=== PATIENT | female | born 2000 | race Hispanic/Latino ===

== ENCOUNTER 2022-08-31 00:47 | Emergency (ER) | payer MEDICAID ==
[~2022-08-31] VITALS: Ht 162.6 cm; Wt 122.5 kg
[2022-08-31 01:42] VITALS: BP 124/89
== END 2022-08-31 01:48 | disposition home or self-care (01) ==
LOC: EDH 00:47
DX: O99.513 Diseases of the respiratory system complicating pregnancy, third trimester (principal); J11.1 Influenza due to unidentified influenza virus with other respiratory manifestations; Z3A.32 32 weeks gestation of pregnancy

== ENCOUNTER 2022-10-23 20:36 | Emergency (ER) | payer MEDICAID ==
[~2022-10-23] VITALS: Ht 162.6 cm; Wt 85.7 kg
[~2022-10-23 20:36] MED LIST: DOCU-116 PO; IBUP-2077 PO
[2022-10-23 21:12] LABS: BASOPHILS % (AUTO) 0.7 % (0.0-5.0); EOSINOPHILS % (AUTO) 4.5 % (0.0-8.0); HEMATOCRIT 25.9 % (36-48); LYMPHOCYTES % (AUTO) 22.5 % (21.0-51.0); MEAN CORPUSCULAR HEMOGLOBIN 23.4 pg (27.0-33.0); MEAN CORPUSCULAR HGB CONC 31.3 g/dL (32.0-36.0); MEAN CORPUSCULAR VOLUME 74.9 fL (80-100); MONOCYTES % (AUTO) 8.6 % (3.0-13.0); NEUTROPHILS % (AUTO) 62.8 % (40.0-77.0); PLATELET COUNT (AUTO) 354 K/uL (130-400); RED BLOOD CELL COUNT(AUTO) 3.46 MIL/uL (4.00-5.50); RED CELL DISTRIBUTION WIDTH 18.6 % (11.0-15.5); WHITE BLOOD COUNT (AUTO) 8.9 K/uL (4.8-10.8)
[2022-10-23 21:23] LABS: CREATININE 0.9 mg/dL (0.5-1.5); POTASSIUM 3.5 mmol/L (3.5-5.1)
[2022-10-23 21:24] LABS: APPEARANCE,URINE CLEAR (CLEAR); BILIRUBIN,URINE NEGATIVE (NEGATIVE); COLOR,URINE LIGHT-YELLOW (YELLOW); GLUCOSE, URINE (UA) NEGATIVE (NEGATIVE); KETONES,URINE NEGATIVE (NEGATIVE); LEUKOCYTE ESTERASE ,URINE 500 Leu/uL (NEGATIVE); NITRATE,URINE NEGATIVE (NEGATIVE); OCCULT BLOOD,URINE LARGE (NEGATIVE); PROTEIN,URINE NEGATIVE (NEGATIVE); UROBILINOGEN,URINE 0.2 mg/dL (0.2-1.0)
[2022-10-23 21:28] LABS: ALBUMIN 2.4 g/dL (3.5-5.0); TOTAL PROTEIN, SERUM 6.9 g/dL (6.0-8.3)
[2022-10-23] MEDS ORDERED: 0.9%NACL 1000ML 1,000 ML IV SCH (21:30)
[2022-10-23] MEDS ORDERED: ACETAMINOPHEN 500 MG TABLET PO ONE (21:30)
[2022-10-23] MEDS ORDERED: KETOROLAC 30MG VIAL (30MG/ML) IVP ONE (21:30)
[2022-10-23] MEDS ORDERED: ONDANSETRON 4MG INJ IVP ONE (21:30)
[2022-10-23 21:36] LABS: BACTERIA,URINE RARE /HPF (None Seen); MUCUS,URINE RARE LPF (None Seen); SQUAMOUS EPITHELIAL CELL,UR RARE /HPF (0-2); WBC,URINE 26-50 /HPF (0-1)
[2022-10-23] MEDS ORDERED: ONDANSETRON 4MG INJ ONE (21:44)
[2022-10-23] MEDS ORDERED: KETOROLAC 30MG VIAL (30MG/ML) ONE (21:44)
[2022-10-23] MEDS ORDERED: ACETAMINOPHEN 500 MG TABLET ONE (21:45)
[2022-10-23] MEDS ORDERED: 0.9%NACL 1000ML 1,000 ML IV ONE (21:45)
[2022-10-23] MEDS ORDERED: CEFTRIAXONE 1G VIAL IVP ONE (22:00)
[2022-10-23] MEDS ORDERED: DICY20TA2 PO (22:46)
[2022-10-23] MEDS ORDERED: CEFU500T67 PO (22:46)
[2022-10-23] MEDS ORDERED: FAMO-136 PO (22:46)
[2022-10-23 22:54] VITALS: BP 124/79
== END 2022-10-23 23:05 | disposition home or self-care (01) ==
LOC: EDH 20:36
DX: N39.0 Urinary tract infection, site not specified (principal); K29.70 Gastritis, unspecified, without bleeding; D64.9 Anemia, unspecified; E66.9 Obesity, unspecified; Z68.32 Body mass index [BMI] 32.0-32.9, adult
CPT/HCPCS: 99284; 74176; 96374; 96375; 96361; 80053; 83690; 85025; 87088; 81001; 36415; J7030; J0696; J2405; J1885

== ENCOUNTER 2023-10-30 01:20 | Emergency (ER) | payer MEDICAID ==
[~2023-10-30] VITALS: Ht 162.6 cm; Wt 113.9 kg
[~2023-10-30 01:20] MED LIST changes: +CEFU500T67 PO; +DICY20TA2 PO; +FAMO-136 PO
[2023-10-30 01:49] VITALS: PULSE 121; RESP 22
[2023-10-30 01:52] LABS: HEMATOCRIT 36.1 % (36-48); MEAN CORPUSCULAR HEMOGLOBIN 23.6 pg (27.0-33.0); MEAN CORPUSCULAR HGB CONC 31.3 g/dL (32.0-36.0); MEAN CORPUSCULAR VOLUME 75.5 fL (79-99); PLATELET COUNT (AUTO) 370 K/uL (130-400); RED BLOOD CELL COUNT(AUTO) 4.78 MIL/uL (4.00-5.50); RED CELL DISTRIBUTION WIDTH 15.6 % (11.0-15.5); WHITE BLOOD COUNT (AUTO) 9.9 K/uL (4.8-10.8)
[2023-10-30 02:00] LABS: RAPID GROUP A STREP negative (NEGATIVE)
[2023-10-30] MEDS ORDERED: SOLU-MEDROL 125MG VIAL IVP ONE (02:00)
[2023-10-30] MEDS ORDERED: IPRATROPIUM/ALBUTEROL SULFATE 3 ML SOLUTION IH ONE (02:00)
[2023-10-30 02:03] LABS: CREATININE 0.9 mg/dL (0.5-1.5); POTASSIUM 3.4 mmol/L (3.5-5.1)
[2023-10-30 02:06] LABS: SARS-CoV-2, RNA, NAAT NEGATIVE SARS CoV-2 (NEGATIVE)
[2023-10-30 02:08] LABS: ALBUMIN 3.4 g/dL (3.5-5.0); BILIRUBIN,TOTAL 0.3 mg/dL (0.2-1.0); TOTAL PROTEIN, SERUM 7.8 g/dL (6.0-8.3)
[2023-10-30 02:10] LABS: INFLUENZA TYPE A Negative For Type A (NEGATIVE)
[2023-10-30 02:23] LABS: INFLUENZA TYPE B Positive For Type B (NEGATIVE)
[2023-10-30 02:24] VITALS: BP 111/64; PULSE 114; RESP 23; O2SAT 95
[2023-10-30 02:28] LABS: BASOPHILS # (AUTO) 0.09 K/uL (0.00-0.20); BASOPHILS % (AUTO) 0.9 % (0.0-5.0); EOSINOPHILS # (AUTO) 0.65 K/uL (0.00-0.70); EOSINOPHILS % (AUTO) 6.7 % (0.0-8.0); IMMATURE GRANULOCYTE ABSOLUTE 0.03 K/uL (0-1); LYMPHOCYTES # (AUTO) 2.5 K/uL (1.0-4.8); LYMPHOCYTES % (AUTO) 25.8 % (21.0-51.0); MONOCYTES # (AUTO) 0.5 K/uL (0.1-1.0); MONOCYTES % (AUTO) 5.4 % (3.0-13.0); NEUTROPHILS # (AUTO) 5.9 K/uL (1.8-7.7); NEUTROPHILS % (AUTO) 60.9 % (40.0-77.0)
[2023-10-30] MEDS ORDERED: ALBU90AE2 IH (02:53)
[2023-10-30] MEDS ORDERED: PRED20TA3 PO (02:53)
[2023-10-30] MEDS ORDERED: OSEL75 PO (02:53)
== END 2023-10-30 03:28 | disposition home or self-care (01) ==
LOC: EDH 01:20
DX: J45.901 Unspecified asthma with (acute) exacerbation (principal); J10.1 Influenza due to other identified influenza virus with other respiratory manifestations; Z20.822 Contact with and (suspected) exposure to COVID-19
CPT/HCPCS: 99284; 96374; 71045; 87635; 80053; 84703; 85025; 87880; 87804 ×2; 36415; 94640; C9803; J2930

== ENCOUNTER 2024-06-12 10:21 | Inpatient (IN) | payer MEDICAID, OTHER ==
[~2024-06-12] VITALS: Ht 162.6 cm; Wt 126.6 kg
[2024-06-12] VITALS (10 sets, daily range): BP systolic 108–130; BP diastolic 47–69; PULSE 93–138; RESP 16–24; O2SAT 91–96
[2024-06-12] MEDS: SOLU-MEDROL 125MG VIAL IVP ONE (10:38)
[2024-06-12] MEDS: ALBUTEROL 0.083% 2.5 MG/3 ML INH IH ONE ×2 (10:38→11:33)
[2024-06-12] MEDS: 0.9%NACL 1000ML 1,000 ML IV ONE (10:38)
[2024-06-12] MEDS: BUDESONIDE 0.5 MG/2 ML INH IH STA (10:39)
[2024-06-12 10:49] LABS: BASOPHILS # (AUTO) 0.09 K/uL (0.00-0.20); BASOPHILS % (AUTO) 0.7 % (0.0-5.0); EOSINOPHILS % (AUTO) 5.8 % (0.0-8.0); IMMATURE GRANULOCYTE ABSOLUTE 0.03 K/uL (0-1); LYMPHOCYTES # (AUTO) 1.9 K/uL (1.0-4.8); LYMPHOCYTES % (AUTO) 15.7 % (21.0-51.0); MEAN CORPUSCULAR HEMOGLOBIN 24.9 pg (27.0-33.0); MEAN CORPUSCULAR HGB CONC 32.4 g/dL (32.0-36.0); MEAN CORPUSCULAR VOLUME 76.8 fL (79-99); MONOCYTES # (AUTO) 0.7 K/uL (0.1-1.0); MONOCYTES % (AUTO) 5.8 % (3.0-13.0); NEUTROPHILS # (AUTO) 8.7 K/uL (1.8-7.7); NEUTROPHILS % (AUTO) 71.8 % (40.0-77.0); PLATELET COUNT (AUTO) 371 K/uL (130-400); RED BLOOD CELL COUNT(AUTO) 4.82 MIL/uL (4.00-5.50); RED CELL DISTRIBUTION WIDTH 16.5 % (11.0-15.5); WHITE BLOOD COUNT (AUTO) 12.1 K/uL (4.8-10.8)
[2024-06-12 11:02] LABS: CREATININE 0.9 mg/dL (0.5-1.0); POTASSIUM 3.8 mmol/L (3.5-5.1)
[2024-06-12] MEDS: MAGNESIUM 2GM PREMIX 50ML 50 ML IV SCH (11:11)
[2024-06-12] MEDS: AZITHROMYCIN 500MG+NS 250ML 250 ML IVPB STA (11:11)
[2024-06-12] MEDS: CEFTRIAXONE 1G VIAL IVPB ONE (12:37)
[2024-06-12] MEDS ORDERED: ONDANSETRON 4MG INJ IVP PRN (13:00)
[2024-06-12] MEDS ORDERED: ACETAMINOPHEN 325 MG TAB PO PRN (13:00)
[2024-06-12] MEDS: IPRATROPIUM/ALBUTEROL SULFATE 3 ML SOLUTION IH SCH (14:25)
[2024-06-12] MEDS ORDERED: IPRATROPIUM/ALBUTEROL SULFATE 3 ML SOLUTION IH SCH ×2 (16:00→18:00)
[2024-06-12] MEDS: BUDESONIDE 0.5 MG/2 ML INH IH SCH (18:22)
[2024-06-12] MEDS: SOLU-MEDROL 40MG VIAL IVP SCH (21:00)
[2024-06-13] VITALS (25 sets, daily range): BP systolic 100–144; BP diastolic 44–76; PULSE 60–110; RESP 10–34; O2SAT 92–98
[2024-06-13] MEDS: IPRATROPIUM/ALBUTEROL SULFATE 3 ML SOLUTION IH ONE ×3 (01:37→09:30)
[2024-06-13] MEDS: BUDESONIDE 0.5 MG/2 ML INH IH ONE (06:16)
[2024-06-13] MEDS: ENOXAPARIN SODIUM 30 MG/0.3 ML SQ SCH (10:42)
[2024-06-13 10:43] LABS: BASOPHILS # (AUTO) 0.02 K/uL (0.00-0.20); BASOPHILS % (AUTO) 0.2 % (0.0-5.0); EOSINOPHILS # (AUTO) 0.01 K/uL (0.00-0.70); EOSINOPHILS % (AUTO) 0.1 % (0.0-8.0); IMMATURE GRANULOCYTE ABSOLUTE 0.05 K/uL (0-1); LYMPHOCYTES # (AUTO) 1.9 K/uL (1.0-4.8); MEAN CORPUSCULAR HEMOGLOBIN 25.5 pg (27.0-33.0); MEAN CORPUSCULAR HGB CONC 31.7 g/dL (32.0-36.0); MEAN CORPUSCULAR VOLUME 80.3 fL (79-99); MONOCYTES # (AUTO) 0.9 K/uL (0.1-1.0); MONOCYTES % (AUTO) 8.1 % (3.0-13.0); NEUTROPHILS # (AUTO) 8.4 K/uL (1.8-7.7); NEUTROPHILS % (AUTO) 74.2 % (40.0-77.0); PLATELET COUNT (AUTO) 352 K/uL (130-400); RED BLOOD CELL COUNT(AUTO) 4.36 MIL/uL (4.00-5.50); RED CELL DISTRIBUTION WIDTH 16.8 % (11.0-15.5); WHITE BLOOD COUNT (AUTO) 11.3 K/uL (4.8-10.8)
[2024-06-13] MEDS: FAMOTIDINE 20MG TAB PO SCH (10:43)
[2024-06-13] MEDS: MONTELUKAST SODIUM 10 MG TAB PO SCH (10:43)
[2024-06-13 10:52] LABS: HEMOGLOBIN A1C 5.6 % (4.0-6.0)
[2024-06-13 10:53] LABS: BILIRUBIN,TOTAL 0.3 mg/dL (0.2-1.0); CREATININE 0.8 mg/dL (0.5-1.0); PHOSPHORUS 3.4 mg/dL (2.5-4.9); POTASSIUM 4.1 mmol/L (3.5-5.1); TOTAL PROTEIN, SERUM 7.1 g/dL (6.0-8.3)
[2024-06-13 11:09] LABS: SARS-CoV-2, RNA, NAAT NEGATIVE SARS CoV-2 (NEGATIVE)
[2024-06-13 11:13] LABS: INFLUENZA TYPE A Negative For Type A (NEGATIVE); INFLUENZA TYPE B Negative For Type B (NEGATIVE)
[2024-06-14] VITALS (17 sets, daily range): BP systolic 100–114; BP diastolic 49–73; PULSE 60–104; RESP 16–20; O2SAT 94–97
[2024-06-14 05:03] LABS: BASOPHILS # (AUTO) 0.01 K/uL (0.00-0.20); BASOPHILS % (AUTO) 0.1 % (0.0-5.0); HEMATOCRIT 34.9 % (36-48); IMMATURE GRANULOCYTE ABSOLUTE 0.06 K/uL (0-1); LYMPHOCYTES # (AUTO) 1.2 K/uL (1.0-4.8); LYMPHOCYTES % (AUTO) 9.9 % (21.0-51.0); MEAN CORPUSCULAR HEMOGLOBIN 24.9 pg (27.0-33.0); MEAN CORPUSCULAR HGB CONC 32.1 g/dL (32.0-36.0); MEAN CORPUSCULAR VOLUME 77.6 fL (79-99); MONOCYTES # (AUTO) 0.4 K/uL (0.1-1.0); MONOCYTES % (AUTO) 3.3 % (3.0-13.0); NEUTROPHILS # (AUTO) 10.4 K/uL (1.8-7.7); NEUTROPHILS % (AUTO) 86.2 % (40.0-77.0); PLATELET COUNT (AUTO) 370 K/uL (130-400); RED CELL DISTRIBUTION WIDTH 17.1 % (11.0-15.5); WHITE BLOOD COUNT (AUTO) 12.1 K/uL (4.8-10.8)
[2024-06-14 05:23] LABS: CREATININE 0.9 mg/dL (0.5-1.0); MAGNESIUM 1.9 mg/dL (1.80-2.40); POTASSIUM 4.4 mmol/L (3.5-5.1)
[2024-06-15] VITALS (15 sets, daily range): BP systolic 99–112; BP diastolic 54–64; PULSE 51–93; RESP 16–20; O2SAT 95–96
[2024-06-15 06:19] LABS: HEMATOCRIT 36.3 % (36-48); MEAN CORPUSCULAR HEMOGLOBIN 25.1 pg (27.0-33.0); MEAN CORPUSCULAR HGB CONC 31.4 g/dL (32.0-36.0); RED BLOOD CELL COUNT(AUTO) 4.54 MIL/uL (4.00-5.50); RED CELL DISTRIBUTION WIDTH 17.2 % (11.0-15.5); WHITE BLOOD COUNT (AUTO) 10.6 K/uL (4.8-10.8)
[2024-06-15 06:35] LABS: CREATININE 0.8 mg/dL (0.5-1.0); POTASSIUM 4.2 mmol/L (3.5-5.1)
[2024-06-16] VITALS (8 sets, daily range): BP systolic 100–113; BP diastolic 51–62; PULSE 57–79; RESP 16–20; O2SAT 95–96
[2024-06-16 06:17] LABS: HEMATOCRIT 36.3 % (36-48); MEAN CORPUSCULAR HEMOGLOBIN 24.6 pg (27.0-33.0); MEAN CORPUSCULAR HGB CONC 31.4 g/dL (32.0-36.0); MEAN CORPUSCULAR VOLUME 78.4 fL (79-99); RED BLOOD CELL COUNT(AUTO) 4.63 MIL/uL (4.00-5.50); RED CELL DISTRIBUTION WIDTH 17.2 % (11.0-15.5); WHITE BLOOD COUNT (AUTO) 11.1 K/uL (4.8-10.8)
[2024-06-16 06:27] LABS: CREATININE 0.8 mg/dL (0.5-1.0); POTASSIUM 4.1 mmol/L (3.5-5.1)
[2024-06-16] MEDS ORDERED: PHARMACY COMMUNICATION MISC SCH (11:30)
[2024-06-16] MEDS: ALBUTEROL INHALER 90MCG/INH IH PRN (13:51)
[2024-06-16] MEDS: PHARMACY COMMUNICATION MISC SCH (13:53)
== END 2024-06-16 15:05 | disposition home or self-care (01) | DRG 189 ==
LOC: EDH 10:21 → 2CH 11:31 → EDH 21:03 → 3BH 06-13 14:38
PROVIDERS: ADMIT Internal Medicine Infectious Disease; ATTEND Internal Medicine Infectious Disease
DX: J96.01 Acute respiratory failure with hypoxia (principal); J45.41 Moderate persistent asthma with (acute) exacerbation; Z68.42 Body mass index [BMI] 45.0-49.9, adult; Z20.822 Contact with and (suspected) exposure to COVID-19; E66.01 Morbid (severe) obesity due to excess calories; R73.9 Hyperglycemia, unspecified; Z91.199 Patient's noncompliance with other medical treatment and regimen due to unspecified reason; Z59.7 Insufficient social insurance and welfare support; Z59.86 Financial insecurity
CPT/HCPCS: 36415; 71045; 80048; 80053; 82948; 83036; 83605; 83735; 83880; 84100; 84443; 84703; 85025; 85027; 86140; 87040; 87426; 87635; 87804; 93005; 94640; 94644; 94664; 94760; G0378; J0456; J0696; J1650; J2919; J3475

== ENCOUNTER 2024-08-01 19:50 | Inpatient (IN) | payer SELFPAY ==
[~2024-08-01] VITALS: Ht 162.6 cm; Wt 125.2 kg
[2024-08-01] MEDS: IpraTROPium/alBUTERol SULFATE 3 ML SOLUTION IH PRN (20:07)
[2024-08-01] MEDS: ALBUTEROL 0.083% 2.5 MG/3 ML INH IH ONE (20:09)
[2024-08-01 20:11] VITALS: PULSE 106; RESP 20
[2024-08-01 20:13] LABS: BASOPHILS # (AUTO) 0.11 K/uL (0.00-0.20); BASOPHILS % (AUTO) 1.3 % (0.0-5.0); EOSINOPHILS # (AUTO) 0.74 K/uL (0.00-0.70); EOSINOPHILS % (AUTO) 8.7 % (0.0-8.0); HEMATOCRIT 35.9 % (36-48); IMMATURE GRANULOCYTE ABSOLUTE 0.02 K/uL (0-1); LYMPHOCYTES # (AUTO) 2.3 K/uL (1.0-4.8); LYMPHOCYTES % (AUTO) 26.9 % (21.0-51.0); MEAN CORPUSCULAR HGB CONC 32.3 g/dL (32.0-36.0); MEAN CORPUSCULAR VOLUME 80.3 fL (79-99); MONOCYTES # (AUTO) 0.5 K/uL (0.1-1.0); MONOCYTES % (AUTO) 6.3 % (3.0-13.0); NEUTROPHILS # (AUTO) 4.8 K/uL (1.8-7.7); NEUTROPHILS % (AUTO) 56.6 % (40.0-77.0); PLATELET COUNT (AUTO) 300 K/uL (130-400); RED BLOOD CELL COUNT(AUTO) 4.47 MIL/uL (4.00-5.50); RED CELL DISTRIBUTION WIDTH 15.8 % (11.0-15.5); WHITE BLOOD COUNT (AUTO) 8.5 K/uL (4.8-10.8)
[2024-08-01] MEDS: 0.9%NACL 1000ML 1,000 ML IV ONE (20:18)
[2024-08-01] MEDS: MAGNESIUM 2GM PREMIX 50ML 50 ML IV SCH (20:18)
[2024-08-01] MEDS: Solu-medROL 125MG VIAL IVP ONE (20:18)
[2024-08-01 20:31] LABS: CREATININE 0.9 mg/dL (0.5-1.0); POTASSIUM 4.1 mmol/L (3.5-5.1)
[2024-08-01 21:20] LABS: INFLUENZA TYPE A Negative For Type A (NEGATIVE); INFLUENZA TYPE B Negative For Type B (NEGATIVE)
[2024-08-01 21:22] LABS: COVID19 (SARS ANTIGEN RAPID) PRESUMPTIVE NEGATIVE (NEGATIVE)
[2024-08-01 22:20] VITALS: BP 123/75; PULSE 103; RESP 19; TEMP 98.7
[2024-08-01 22:51] VITALS: O2SAT 94
[2024-08-01 23:31] VITALS: PULSE 94; RESP 20
[2024-08-01] MEDS: IpraTROPium/alBUTERol SULFATE 3 ML SOLUTION IH SCH (23:31)
[2024-08-01 23:51] VITALS: BP 124/58; PULSE 94; RESP 20; TEMP 98.1
[2024-08-02] VITALS (11 sets, daily range): BP systolic 102–121; BP diastolic 52–74; PULSE 85–107; RESP 18–22; TEMP 97.8–98.2; O2SAT 91–96
[2024-08-02] MEDS: ONDANSETRON 4MG INJ IVP PRN (00:31)
[2024-08-02 04:43] LABS: MEAN CORPUSCULAR HEMOGLOBIN 25.8 pg (27.0-33.0); MEAN CORPUSCULAR HGB CONC 31.3 g/dL (32.0-36.0); MEAN CORPUSCULAR VOLUME 82.6 fL (79-99); RED BLOOD CELL COUNT(AUTO) 4.72 MIL/uL (4.00-5.50); RED CELL DISTRIBUTION WIDTH 15.9 % (11.0-15.5); WHITE BLOOD COUNT (AUTO) 7.1 K/uL (4.8-10.8)
[2024-08-02 04:53] LABS: CREATININE 1.2 mg/dL (0.5-1.0); MAGNESIUM 1.8 mg/dL (1.80-2.40); POTASSIUM 4.3 mmol/L (3.5-5.1)
[2024-08-02] MEDS: Solu-medROL 40MG VIAL IVP ONE (09:37)
[2024-08-02] MEDS ORDERED: CEFTRIAXONE 2GM VIAL IVPB SCH (10:00)
[2024-08-02] MEDS: IpraTROPium 0.5 MG/2.5 ML INH IH SCH (10:00)
[2024-08-02] MEDS ORDERED: Solu-medROL 40MG VIAL IVP SCH (10:00)
[2024-08-02] MEDS ORDERED: IpraTROPium/alBUTERol SULFATE 3 ML SOLUTION IH SCH (10:00)
[2024-08-02] MEDS ORDERED: AZITHROMYCIN 500MG+NS 250ML 250 ML IVPB SCH (11:00)
[2024-08-02] MEDS: SODIUM CHLORIDE 3% FOR INHALATION 4 ML/AMP VIAL.NEB IH ONE (11:05)
[2024-08-02] MEDS: AZITHROMYCIN 500MG+NS 250ML 250 ML IVPB SCH (11:22)
[2024-08-02] MEDS: CEFTRIAXONE 2GM VIAL IVPB SCH (11:45)
[2024-08-02] MEDS: INSULIN humuLIN R 100 UNIT/ML 3ML SQ SCH (12:00)
[2024-08-02] MEDS: BUDESONIDE 0.5 MG/2 ML INH IH SCH (18:36)
[2024-08-02] MEDS: acetaMINOPHEN 325 MG TAB PO PRN (18:41)
[2024-08-02] MEDS: Solu-medROL 40MG VIAL IVP SCH (18:41)
[2024-08-03] VITALS (17 sets, daily range): BP systolic 110–135; BP diastolic 61–84; PULSE 60–107; RESP 18–22; TEMP 97.8–98.6; O2SAT 91–96
[2024-08-03 05:03] LABS: BASOPHILS # (AUTO) 0.02 K/uL (0.00-0.20); BASOPHILS % (AUTO) 0.1 % (0.0-5.0); EOSINOPHILS # (AUTO) 0.02 K/uL (0.00-0.70); EOSINOPHILS % (AUTO) 0.1 % (0.0-8.0); IMMATURE GRANULOCYTE ABSOLUTE 0.08 K/uL (0-1); LYMPHOCYTES # (AUTO) 1.6 K/uL (1.0-4.8); LYMPHOCYTES % (AUTO) 10.5 % (21.0-51.0); MEAN CORPUSCULAR HEMOGLOBIN 25.6 pg (27.0-33.0); MEAN CORPUSCULAR HGB CONC 31.6 g/dL (32.0-36.0); MONOCYTES # (AUTO) 0.9 K/uL (0.1-1.0); NEUTROPHILS # (AUTO) 12.8 K/uL (1.8-7.7); NEUTROPHILS % (AUTO) 82.8 % (40.0-77.0); PLATELET COUNT (AUTO) 373 K/uL (130-400); RED BLOOD CELL COUNT(AUTO) 4.57 MIL/uL (4.00-5.50); RED CELL DISTRIBUTION WIDTH 15.9 % (11.0-15.5); WHITE BLOOD COUNT (AUTO) 15.4 K/uL (4.8-10.8)
[2024-08-03 05:18] LABS: POTASSIUM 4.1 mmol/L (3.5-5.1)
[2024-08-03] MEDS: PANTOPRAZOLE 40 MG TAB DR PO SCH (08:04)
[2024-08-03] MEDS: PREDNISONE 20 MG TABLET PO SCH (08:04)
[2024-08-03] MEDS ORDERED: IpraTROPium 0.5 MG/2.5 ML INH IH SCH (12:00)
[2024-08-03 12:26] LABS: ABG BASE EXCESS -3.3 mmol/L (-2.0-3.0); ABG HCO3 21.7 mmol/L (21.0-28.0); ABG OXYGEN SATURATION 94.8 % (94.0-98.0); ABG PCO2 39 mmHg (32-45); ABG PH 7.365 (7.350-7.450); DEVICE COMMENT LR GABRIEL; PO2, ARTERIAL BG 75.8 mmHg (83.0-108.0); VENT MODE, BG 3LNC (ROOM AIR)
[2024-08-03] MEDS: Solu-medROL 40MG VIAL IVP SCH (13:12)
[2024-08-03] MEDS: furoSEMIDE 20MG VIAL IV ONE (13:12)
[2024-08-03] MEDS: IpraTROPium 0.5 MG/2.5 ML INH IH SCH ×2 (14:21→18:18)
[2024-08-03] MEDS: diazePAM 5 MG TAB PO ONE (17:30)
[2024-08-03] MEDS: monteLUKAST sodIUM 10 MG TAB PO SCH (19:59)
[2024-08-03] MEDS ORDERED: IpraTROPium 0.5 MG/2.5 ML INH IH PRN (23:00)
[2024-08-04] VITALS (21 sets, daily range): BP systolic 108–126; BP diastolic 61–74; PULSE 46–117; RESP 17–20; TEMP 97.8–98.7; O2SAT 93–98
[2024-08-04 04:17] LABS: HEMATOCRIT 37.5 % (36-48); MEAN CORPUSCULAR HEMOGLOBIN 25.2 pg (27.0-33.0); MEAN CORPUSCULAR HGB CONC 31.7 g/dL (32.0-36.0); MEAN CORPUSCULAR VOLUME 79.4 fL (79-99); RED BLOOD CELL COUNT(AUTO) 4.72 MIL/uL (4.00-5.50); RED CELL DISTRIBUTION WIDTH 15.8 % (11.0-15.5)
[2024-08-04] MEDS: acetaMINOPHEN 325 MG TAB PO PRN (04:18)
[2024-08-04 04:31] LABS: MAGNESIUM 1.9 mg/dL (1.80-2.40); POTASSIUM 3.8 mmol/L (3.5-5.1)
[2024-08-04] MEDS: KCL 20 MEQ ERTAB PO PRN (04:59)
[2024-08-04] MEDS: traMADol HCL 50 MG TABLET PO PRN (04:59)
[2024-08-04] MEDS ORDERED: POTASSIUM CHLORIDE 10% ELIXIR 20 MEQ/15 ML UDCUP PO PRN (05:00)
[2024-08-04] MEDS ORDERED: POTASSIUM CHLORIDE 20MEQ/100ML 100 ML IV PRN (05:00)
[2024-08-04 10:37] LABS: ABG BASE EXCESS -1.2 mmol/L (-2.0-3.0); ABG OXYGEN SATURATION 97.5 % (94.0-98.0); ABG PCO2 37 mmHg (32-45); ABG PH 7.409 (7.350-7.450); DEVICE COMMENT RR, MARY,RN; PO2, ARTERIAL BG 97.2 mmHg (83.0-108.0); VENT MODE, BG NC 2L (ROOM AIR)
[2024-08-05] VITALS (15 sets, daily range): BP systolic 91–142; BP diastolic 51–77; PULSE 53–89; RESP 18–20; TEMP 98–98.9; O2SAT 86–96
[2024-08-05 04:26] LABS: HEMATOCRIT 41.6 % (36-48); MEAN CORPUSCULAR HEMOGLOBIN 25.6 pg (27.0-33.0); MEAN CORPUSCULAR HGB CONC 32.2 g/dL (32.0-36.0); MEAN CORPUSCULAR VOLUME 79.5 fL (79-99); RED BLOOD CELL COUNT(AUTO) 5.23 MIL/uL (4.00-5.50); RED CELL DISTRIBUTION WIDTH 15.4 % (11.0-15.5); WHITE BLOOD COUNT (AUTO) 11.8 K/uL (4.8-10.8)
[2024-08-05 04:56] LABS: MAGNESIUM 2.5 mg/dL (1.80-2.40); POTASSIUM 3.9 mmol/L (3.5-5.1)
[2024-08-05] MEDS: Solu-medROL 40MG VIAL IVP SCH (21:05)
[2024-08-06] VITALS (13 sets, daily range): BP systolic 105–128; BP diastolic 53–77; PULSE 45–92; RESP 18–21; TEMP 98–98.6; O2SAT 91–95
[2024-08-06] MEDS: Solu-medROL 40MG VIAL IVP SCH (23:49)
[2024-08-07] VITALS (16 sets, daily range): BP systolic 97–122; BP diastolic 52–81; PULSE 50–97; RESP 18–22; TEMP 97.7–98.8; O2SAT 92–96
[2024-08-07 03:51] LABS: HEMATOCRIT 38.3 % (36-48); MEAN CORPUSCULAR HEMOGLOBIN 25.3 pg (27.0-33.0); MEAN CORPUSCULAR HGB CONC 31.6 g/dL (32.0-36.0); RED BLOOD CELL COUNT(AUTO) 4.79 MIL/uL (4.00-5.50); RED CELL DISTRIBUTION WIDTH 15.2 % (11.0-15.5); WHITE BLOOD COUNT (AUTO) 10.5 K/uL (4.8-10.8)
[2024-08-07 04:06] LABS: MAGNESIUM 2.2 mg/dL (1.80-2.40); POTASSIUM 3.9 mmol/L (3.5-5.1)
[2024-08-08] VITALS (12 sets, daily range): BP systolic 99–119; BP diastolic 60–73; PULSE 47–108; RESP 18–22; TEMP 97.7–98.5; O2SAT 92–98
[2024-08-08] MEDS: PREDNISONE 20 MG TABLET PO SCH (08:36)
[2024-08-08] MEDS ORDERED: MONT-39 PO (14:54)
[2024-08-08] MEDS ORDERED: ALBU18HF7 IH (14:54)
[2024-08-08] MEDS ORDERED: METH4TAB3 PO (14:54)
[2024-08-08] MEDS ORDERED: DOXY100C61 PO (14:54)
== END 2024-08-08 16:10 | disposition home or self-care (01) | DRG 202 ==
LOC: EDH 19:50 → EDHIP 19:51 → 4BH 22:08 → 4AH 08-04 16:23
PROVIDERS: ADMIT Internal Medicine Infectious Disease; ATTEND Internal Medicine Infectious Disease
DX: J45.41 Moderate persistent asthma with (acute) exacerbation (principal); J96.01 Acute respiratory failure with hypoxia; Z68.42 Body mass index [BMI] 45.0-49.9, adult; Z20.822 Contact with and (suspected) exposure to COVID-19; E66.01 Morbid (severe) obesity due to excess calories; D72.829 Elevated white blood cell count, unspecified; R73.9 Hyperglycemia, unspecified; Z91.148 Patient's other noncompliance with medication regimen for other reason
CPT/HCPCS: 36415; 36600; 71045; 80048; 82803; 82948; 83735; 84145; 84703; 85025; 85027; 85378; 87071; 87205; 87426; 87804; 93005; 94640; 94664; 94760; 99291; G0378; J0456; J0696; J1815; J1940; J2405; J2919; J3475; J7030

== ENCOUNTER 2025-05-21 04:03 | Observation (INO) | payer SELFPAY ==
[~2025-05-21] VITALS: Ht 162.6 cm; Wt 118.0 kg
[~2025-05-21 04:03] MED LIST changes: +ALBU18HF7 IH; -CEFU500T67 PO; -DICY20TA2 PO; -DOCU-116 PO; +DOXY-466 PO; -FAMO-136 PO; -IBUP-2077 PO; +METH4TAB3 PO; +MONT-39 PO
[2025-05-21] MEDS: hydroMORPHone 2 MG VIAL (2MG/ML) IVP ONE (04:59)
[2025-05-21] MEDS: LACTATED RINGERS 1000ML IV STA (04:59)
[2025-05-21] MEDS ORDERED: ketOROlac 30MG VIAL (30MG/ML) IVP ONE (05:00)
[2025-05-21] MEDS: ondanSETRON 4MG TABLET PO ONE (05:00)
[2025-05-21 05:02] LABS: BASOPHILS # (AUTO) 0.08 K/uL (0.00-0.20); BASOPHILS % (AUTO) 0.8 % (0.0-5.0); EOSINOPHILS # (AUTO) 0.26 K/uL (0.00-0.70); EOSINOPHILS % (AUTO) 2.7 % (0.0-8.0); HEMATOCRIT 33.1 % (36-48); IMMATURE GRANULOCYTE ABSOLUTE 0.03 K/uL (0-1); LYMPHOCYTES # (AUTO) 2.5 K/uL (1.0-4.8); LYMPHOCYTES % (AUTO) 26.3 % (21.0-51.0); MEAN CORPUSCULAR HEMOGLOBIN 25.9 pg (27.0-33.0); MEAN CORPUSCULAR VOLUME 80.9 fL (79-99); MONOCYTES # (AUTO) 0.5 K/uL (0.1-1.0); MONOCYTES % (AUTO) 5.1 % (3.0-13.0); NEUTROPHILS # (AUTO) 6.2 K/uL (1.8-7.7); NEUTROPHILS % (AUTO) 64.8 % (40.0-77.0); PLATELET COUNT (AUTO) 274 K/uL (130-400); RED BLOOD CELL COUNT(AUTO) 4.09 MIL/uL (4.00-5.50); RED CELL DISTRIBUTION WIDTH 14.3 % (11.0-15.5); WHITE BLOOD COUNT (AUTO) 9.6 K/uL (4.8-10.8)
[2025-05-21 05:12] LABS: CREATININE 0.8 mg/dL (0.5-1.0); POTASSIUM 3.7 mmol/L (3.5-5.1)
[2025-05-21 05:16] LABS: ALBUMIN 3.1 g/dL (3.5-5.0); BILIRUBIN,TOTAL 0.3 mg/dL (0.2-1.0); TOTAL PROTEIN, SERUM 6.6 g/dL (6.0-8.3)
--- NOTE | 2025-05-21 05:52 | ERN ---
General Chief Complaint: Abdominal Pain Stated Complaint: UPPER ABD PAIN, HX GALLSTONES Time Seen by MD: 04:49 Source: patient History of Present Illness Initial Comments Patient here with bilateral upper quadrant abdominal pain. She states that it is gallbladder pain because she was seen in an emergency room where she was given that diagnosis. She does not know if it was a CT scan or an ultrasound and she does not know in which emergency room those exams were performed. She does have nausea and vomiting. Fevers chills. No chest pain no shortness of breath. Allergies: Coded Allergies: No Known Drug Allergies (Verified Allergy, Unknown, 05/21/25) Home Meds Active Scripts Albuterol Sulfate (Ventolin Hfa) 90 Mcg Hfa.aer.ad, 18 GM IH Q4H PRN for SHORTNESS OF BREATH/WHEEZING for 30 Days, #1 INHALER Prov:ALONDRA SWIFT 08/08/24 Methylprednisolone (Medrol) 4 Mg Tab.ds.pk, 4 MG PO DAILY for 6 Days, #1 KIT Prov:ALONDRA SWIFT 08/08/24 Montelukast Sodium (Montelukast Sodium) 10 Mg Tablet, 10 MG PO HS for 30 Days, #30 TAB Prov:ALONDRA SWIFT 08/08/24 Doxycycline Monohydrate (Doxycycline Monohydrate) 100 Mg Capsule, 100 MG PO BID for 5 Days, #10 CAP Prov:ALONDRA SWIFT 08/08/24 Past Medical History Past Medical History: No Pertinent History Past Surgical History: None Family History Family History: Negative Social History Social History: Negative, Lives with family Female( History) History: Not Applicable LMP: May 08, 2025 : 1 Para: 0 Aborts: 0 Constitutional: (+) chills, (+) diaphoresis, (+) fever, (+) malaise, (+) weakness, (+) other documentation EENTM: (-) eye pain, (-) blurred vision, (-) tearing, (-) double vision, (-) ear pain, (-) ear discharge, (-) nose pain, (-) nose congestion, (-) throat pain, (-) Throat swelling, (-) mouth pain, (-) tooth pain, (-) mouth swelling, (-) other documentation Respiratory: (-) cough, (-) orthopnea, (-) short of breath, (-) stridor, (-) wheezing, (-) other documentation Cardiovascular: (-) chest pain, (-) edema, (-) palpitations, (-) syncope, (-) dyspnea on exertion, (-) other documentation Gastrointestinal/Abdominal: (+) nausea, (+) vomiting Genitourinary: (-) vaginal discharge, (-) vaginal bleeding, (-) dysuria, (-) frequency, (-) hematuria, (-) pain, (-) other documentation Musculoskeletal: (+) Flank Pain Skin: (-) laceration, (-) contusion, (-) abrasion, (-) abscess, (-) rash, (-) change in color, (-) change in hair, (-) change in nails, (-) diaphoresis, (-) dryness, (-) other documentation Physical Exam General Appearance: (+) moderate distress General Appearance comment Patient on all fours in the bed stating she can not lie flat on her back because of the pain. She is constantly moving and unable to get comfortable. Orientation: (+) oriented x 3 Head/Face Trauma: No Eye: bilateral eye normal inspection, bilateral eye PERRL, bilateral eye EOMI Ear, Nose, Throat: (+) hearing grossly normal, (+) normal ENT inspection Neck: (+) normal inspection, (+) supple, (+) full range of motion Respiratory: (+) chest non-tender, (+) lungs clear Heart: (+) regular, (+) no gallop Vascular: (+) no edema, (+) normal peripheral pulse Gastrointestinal: (+) soft, (+) non-tender, (+) bowel sound present Gastrointestinal Comment No peritoneal signs negative Bray's sign. Results Laboratory and Microbiology Lab and Micro Result MDM MDM: Differential diagnosis: Rationale: Tests considered and ordered secondary to shared decision making include: labs, ECG and radiology Previous outside records reviewed: Old ER visits. Risk of complication and/or morbidity or mortality of patient management: None Medications-Per medication reconciliation Need for hospitalization: Patient does meet criteria for hospitalization. Need for emergency major/minor surgery: No There are no social concerns with this patient. Prescription drug management Prescriptions will include symptomatic care Patient's prior external medical records from other ER visits were reviewed by me as indicated. Prior testing and results from previous visits were reviewed. Prior tests were taken into account with medical decision making and resource utilization, independent historian/historians were used to obtain complete medical history. I independently interpreted the test that were performed, results were reviewed by me and considered findings on radiology if ordered. Medical management and examination interpretation discussions were had by me with other qualified healthcare professionals as indicated for the patient's care. 25-year-old female with choledocholithiasis and asthma exacerbation started on nebulized treatments and steroids, admitting for MRCP and GI consult with primary care. ED Course DX & DISP Disposition: Inpatient Departure Impression: Primary Impression: Acute asthma exacerbation Additional Impression: Choledocholithiasis Condition: Stable Referrals: SELF,REFERRAL (PCP) ADELE APODACA MD May 21, 2025 05:52 ERROL DAVIS MD May 21, 2025 10:14
[2025-05-21] MEDS ORDERED: IOHEXOL-350 75 ML VIAL IV ONE (07:09)
[2025-05-21 07:47] LABS: HCG,QUALITATIVE URINE NEGATIVE (NEGATIVE)
[2025-05-21 07:50] LABS: APPEARANCE,URINE CLOUDY (CLEAR); BILIRUBIN,URINE NEGATIVE (NEGATIVE); COLOR,URINE YELLOW (YELLOW); GLUCOSE, URINE (UA) NEGATIVE (NEGATIVE); KETONES,URINE NEGATIVE (NEGATIVE); LEUKOCYTE ESTERASE ,URINE 25 Leu/uL (NEGATIVE); MUCUS,URINE MANY LPF (None Seen); NITRATE,URINE NEGATIVE (NEGATIVE); OCCULT BLOOD,URINE NEGATIVE (NEGATIVE); PH,URINE 5.5 (5.0-8.0); PROTEIN,URINE 20 mg/dL (NEGATIVE); SQUAMOUS EPITHELIAL CELL,UR MOD /HPF (0-2)
--- NOTE | 2025-05-21 08:37 | HMCIMG ---
Exam Type: US ABDOMINAL RUQ\E\LTD Clinical Information: ruq pain Comparison: None Findings: The liver shows fatty infiltration and is enlarged, measuring over 16 cm and is otherwise unremarkable. Doppler evaluation shows patent portal and hepatic veins. The gallbladder shows cholelithiasis but no evidence of acute or chronic inflammation seen. Common bile duct dilatation is noted. The gallbladder wall measures 2 mm. The common bile duct measures 9 mm. The right kidney measures 10 x 6 cm- it shows no hydronephrosis or calculi, masses or other abnormalities. The pancreas is unremarkable. The aorta and inferior vena cava show no significant abnormalities. IMPRESSION: FATTY LIVER INFILTRATION AND HEPATOMEGALY. CHOLELITHIASIS. Dilated common bile duct.
--- NOTE | 2025-05-21 09:01 | HMCIMG ---
Exam Type: CT ABDOMEN/PELVIS W/WO CONTRAS Clinical Information: abd pain Comparison: None Contrast: 100 cc's Isovue 370 IV, no complications or adverse reactions CT Dose Index (CTDI): 31.60 mGy Dose Length Product (DLP): 1740.80 total mGy-cm Findings: No evidence of nephro or ureterolithiasis is found. No hydronephrosis or ureteral dilatation is seen. The lung bases are clear. The stomach is unremarkable. It shows no wall thickening. No gross ulceration is seen. It is not overly distended. There are no surrounding inflammatory changes. No wall lesions are identified to suggest cancer. The spleen is unremarkable. It is not enlarged. The pancreas shows normal anatomy. It is not fatty replaced. It shows no lesions. The pancreatic duct is not dilated. There is evidence of cholelithiasis. No evidence of acute or chronic inflammation is seen. The adrenal glands are unremarkable. There is no enlargement. No lesions are noted. The liver is unremarkable. It shows no focal masses. The appendix is unremarkable. It shows no evidence of inflammation. No appendicolith is seen. The small bowel is unremarkable. There is no evidence of dilatation to suggest obstruction. No evidence of adynamic ileus is seen. There is no small bowel wall thickening to suggest enteritis. The colon is unremarkable. The urinary bladder is unremarkable. There is no wall thickening to suggest tumor or inflammation. There are no intraluminal calculi. There are no diverticula. There is no evidence of chronic bladder outlet obstruction. There is no evidence of urinary bladder distention to suggest urinary retention. The other pelvic structures are unremarkable. The bony and vascular structures are unremarkable for the patient's age. IMPRESSION: Cholelithiasis. This study was performed using dose reduction techniques to include automated exposure control and/or adjustment of the mA and/or kV according to patient size.
--- NOTE | 2025-05-21 09:02 | NUR ---
PATIENT NOTED WITH WHEEZING IN ALL LUNG HATCH, NO C/O SOB, NO PAIN, ERMD MADE AWARE
[2025-05-21] MEDS ORDERED: morPHINE 2 MG SYG IVP PRN (09:30)
[2025-05-21] MEDS ORDERED: acetaMINOPHEN 325 MG TAB PO PRN (09:30)
[2025-05-21] MEDS ORDERED: ondanSETRON 4MG INJ IVP PRN (09:30)
[2025-05-21] MEDS: Solu-medROL 125MG VIAL IVP ONE (09:35)
[2025-05-21 09:56] VITALS: PULSE 90; RESP 18
[2025-05-21] MEDS: IpraTROPium/alBUTERol SULFATE 3 ML SOLUTION IH ONE ×2 (09:56)
[2025-05-21 10:55] VITALS: O2SAT 99
--- NOTE | 2025-05-21 10:56 | HMCIMG ---
Exam Type: MRI OF THE ABDOMEN WITHOUT CONTRAST and MR cholangiopancreatography Comparison Study: none History: CHOLELITHIASIS PROTOCOL: Examination is done with multiecho multiplanar sequences. ASSET with multiplanar 3-D reconstructions MR cholangiopancreatography sequences are also available for review. MRCP performed customary fashion. 2D axial FIESTA fat-saturated images of abdomen, coronal thick slab MRCP ASSET scan and coronal thin slab MRCP ASSET 3 mm images and maximum intensity projection postprocessing, MIP projected in the customary circumferential and head over heels fashion. FINDINGS: No evidence of nephro or ureterolithiasis is found. No hydronephrosis or ureteral dilatation is seen. The stomach is unremarkable. There is no evidence of gastric dilatation. No blastic thickening is noted to suggest inflammation or tumor. There is no perforation. There is no gastric outlet obstruction. There is no ulceration. The spleen is unremarkable. It is not enlarged. The pancreas shows normal anatomy. It is not fatty replaced. It shows no lesions. The pancreatic duct is not dilated. There is evidence of cholelithiasis. The gallbladder is hydropic. No evidence of acute or chronic inflammation is seen. The adrenal glands are unremarkable. There is no enlargement. No lesions are noted. The liver is unremarkable. It shows no focal masses. The visualized segments of large and small bowel appear unremarkable. The bony and vascular structures are unremarkable for the patient's age. MRCP shows mild dilatation of the colon bile duct at 7 mm. However, no distal obstructing lesion or calculus identified. IMPRESSION: Cholelithiasis and hydropic gallbladder. Minimal dilatation of the common bile duct without obstructing lesion or stone.
[2025-05-21] MEDS ORDERED: ALBU2.5V2 NEB (11:10)
[2025-05-21 11:11] VITALS: BP 142/87; PULSE 64; RESP 16; TEMP 98.7
--- NOTE | 2025-05-21 15:14 | CONS ---
GENERAL SURGERY CONSULTATION NOTE DATE OF CONSULTATION: May 21, 2025 TIME OF CONSULTATION: 15:13 CONSULTING SERVICE: Lei Landaverde MD REQUESTING PHYSICAIN: [ ] REASON FOR CONSULTATION: [ ] Abdominal pain HISTORY OF PRESENT ILLNESS: [ ] 25-year-old lady who presented with abdominal pain Pain started yesterday associated with nausea but no vomiting She also had diarrhea She has never had this kind of pain before PAST MEDICAL HISTORY: [ ] None PAST SURGICAL HISTORY: [ ] None FAMILY HISTORY: [ ] No family history of hypertension or diabetes SOCIAL HISTORY: [ ] No smoking No alcohol Current Medications Medications (Trade) Dose Ordered Sig/Felicia Route Start Time Stop Time Status Last Admin Dose Admin Dextrose/Sodium Chloride 1,000 ml @ 100 mls/hr Q10H IV 05/21/25 09:30 06/20/25 09:29 Enoxaparin Sodium (Lovenox) 30 mg DAILY SQ 05/22/25 09:00 06/21/25 08:59 Lactated Ringer's (Lactated Ringers 1000ml) 1,000 ml BOLUS STAT IV 05/21/25 04:50 05/21/25 04:53 DC 05/21/25 04:59 1,000 ML Allergies: Coded Allergies: No Known Drug Allergies (Verified Allergy, Unknown, 05/21/25) REVIEW OF SYSTEMS: [employer] ATTENDANT: [Denies headaches or blurring of vision.] RESP: [No cough, chest pain or SOB.] CVS: [No palpitaions.] GI: [abdominal pain with nausea and vomiting, no diarrhea or constipation.] DUSTIN: [No dysuria or hematuria.] Musculoskeletal: [No swelling or joint pain.] BACK: [No pain or swelling.] All other systems are reviewed and essentially negative pertinent positives in HPI. PHYSICAL EXAMINATION: GENERAL: [Patient is lying comfortably in bed, not in any obvious distress.] HEAD: [Normal with no signs of head trauma.] EYES: [Not pale not jaundiced afebrile to touch.] ENT: [ Normal.] NECK: [Supple,no tenderness,no lymphadenopathy,no masses,no thyromegaly ,no bruits, no JVD.] LUNGS: [Clear breath sounds bilaterally. No wheezes, rales, or rhonchi.] HEART: [Regular rate and rhythm. Normal S1 and S2, without murmurs, rub or gallop.] VASC: [No edema. Peripheral pulses normal and equal in all extremities.] ABD: [Bowel sounds present,soft, obese nontender : [Normal, no suprapubic tenderness.] LYMPH: [No lymphadenopathy noted.] EXT: [ Warm soft, non tender.] SKIN: [ No rashes or lesions.] NEURO: [ Awake Alert and oriented x3.] Vital Signs (last 8hr) Date Time Temp Pulse Resp B/P (MAP) Pulse Ox O2 Delivery O2 Flow Rate FiO2 05/21/25 11:11 98.8 64 16 142/87 100 Room Air 05/21/25 10:55 99 Room Air* 0 05/21/25 09:56 90 18 05/21/25 08:57 98.1 63 18 106/60 99 Room Air* 0 05/21/25 07:30 97.9 51 16 110/61 97 Room Air* 0 21 LABORATORY: [ ] Hematology Labs: Test 05/21/25 04:40 Range/Units White Blood Count 9.6 4.8-10.8 K/uL Red Blood Count 4.09 4.00-5.50 MIL/uL Hemoglobin 10.6 L 12.0-16.0 g/dL Hematocrit 33.1 L 36-48 % Mean Corpuscular Volume 80.9 79-99 fL Mean Corpuscular Hemoglobin 25.9 L 27.0-33.0 pg Mean Corpuscular Hemoglobin Concent 32.0 32.0-36.0 g/dL Red Cell Distribution Width 14.3 11.0-15.5 % Platelet Count 274 130-400 K/uL Mean Platelet Volume 12.3 H 7.5-10.5 fL Immature Granulocyte % (Auto) 0.3 0-1 % Neutrophils (%) (Auto) 64.8 40.0-77.0 % Lymphocytes (%) (Auto) 26.3 21.0-51.0 % Monocytes (%) (Auto) 5.1 3.0-13.0 % Eosinophils (%) (Auto) 2.7 0.0-8.0 % Basophils (%) (Auto) 0.8 0.0-5.0 % Neutrophils # (Auto) 6.2 1.8-7.7 K/uL Lymphocytes # (Auto) 2.5 1.0-4.8 K/uL Monocytes # (Auto) 0.5 0.1-1.0 K/uL Eosinophils # (Auto) 0.26 0.00-0.70 K/uL Basophils # (Auto) 0.08 0.00-0.20 K/uL Absolute Immature Granulocyte (auto 0.03 0-1 K/uL Nucleated Red Blood Cells 0.0 0.0-0.19 % Chemistry Labs: Test 05/21/25 04:40 Range/Units Sodium Level 141 136-145 mmol/L Potassium Level 3.7 3.5-5.1 mmol/L Chloride Level 106 101-111 mmol/L Carbon Dioxide Level 26 21-32 mmol/L Blood Urea Nitrogen 13 7-18 mg/dL Creatinine 0.8 0.5-1.0 mg/dL Glomerular Filtration Rate Calc 105 >90 mL/min Random Glucose 105 70-105 mg/dL Total Calcium 8.7 8.5-10.1 mg/dL Total Bilirubin 0.3 0.2-1.0 mg/dL Aspartate Amino Transf (AST/SGOT) 38 H 10-37 U/L Alanine Aminotransferase (ALT/SGPT) 31 12-78 U/L Alkaline Phosphatase 57 50-136 U/L Total Protein 6.6 6.0-8.3 g/dL Albumin 3.1 L 3.5-5.0 g/dL DIAGNOSTICS / RADIOLOGY: [Copy/Paste Echos/Imaging Report here] ASSESSMENT: [] Abdominal pain Biliary colic Cholelithiasis PLAN: [Trial of diet Okay to DC home to follow up with me in the office in two weeks Outpatient cholecystectomy LEI LANDAVERDE MD May 21, 2025 15:14
[2025-05-21 16:36] VITALS: BP 108/53; PULSE 57; RESP 18; TEMP 98.4
[2025-05-21 20:00] VITALS: BP 123/63; PULSE 53; RESP 20; TEMP 98.1
[2025-05-21 20:08] VITALS: O2SAT 94
[2025-05-21] MEDS: DEXTROSE 5 % AND 0.9 % NACL 1,000 ML IV SCH (20:08)
[2025-05-22] VITALS: BP 114/50; PULSE 57; RESP 20; TEMP 98.5
[2025-05-22 04:00] VITALS: BP 115/44; PULSE 67; RESP 20; TEMP 98.3
[2025-05-22 04:35] LABS: HEMATOCRIT 31.4 % (36-48); MEAN CORPUSCULAR HEMOGLOBIN 26.5 pg (27.0-33.0); MEAN CORPUSCULAR HGB CONC 32.8 g/dL (32.0-36.0); MEAN CORPUSCULAR VOLUME 80.7 fL (79-99); RED BLOOD CELL COUNT(AUTO) 3.89 MIL/uL (4.00-5.50); RED CELL DISTRIBUTION WIDTH 14.4 % (11.0-15.5); WHITE BLOOD COUNT (AUTO) 7.2 K/uL (4.8-10.8)
[2025-05-22 04:47] LABS: CREATININE 0.6 mg/dL (0.5-1.0); MAGNESIUM 1.8 mg/dL (1.80-2.40); POTASSIUM 3.5 mmol/L (3.5-5.1)
[2025-05-22 07:38] VITALS: BP 111/66; PULSE 80; RESP 16; TEMP 98
--- NOTE | 2025-05-22 07:40 | HP ---
DATE OF SERVICE: 05/21/2025 HISTORY AND PHYSICAL PRESENTING COMPLAINT: Abdominal pain. HISTORY OF PRESENT ILLNESS: A 25-year-old female with morbid obesity and asthma, presented to the hospital with abdominal pain. Pain localized to the right upper quadrant. No nausea, vomiting. Denies fever or chills. CT of the abdomen was done, which shows cholelithiasis. MRCP has been done, which shows cholelithiasis with hydrops gallbladder. CBD is slightly dilated with no evidence of obstruction. PAST MEDICAL HISTORY: * Obesity. * Bronchial asthma. PAST SURGICAL HISTORY: None. ALLERGIES: No known drug allergies. CURRENT MEDICATIONS: None. SOCIAL HISTORY: Denies alcohol, tobacco, or illicit drug use. FAMILY HISTORY: Noncontributory. REVIEW OF SYSTEMS: Greater than 10 systems were reviewed, negative except as documented above. PHYSICAL EXAMINATION: GENERAL: Young female, awake. VITAL SIGNS: Temperature 98.1, pulse 63, respiratory rate 18, BP 108/60. EYES: No icterus. Pupils are equal and reactive. HENT: No oral thrush seen. Moist oral mucosa. NECK: Supple. No JVD or thyromegaly. LUNGS: Good air entry. No rales. No rhonchi. CARDIOVASCULAR: S1, S2 regular. No murmur heard. ABDOMEN: Obese, soft. Bowel sound is present. Tenderness to the right upper quadrant. CENTRAL NERVOUS SYSTEM: Awake, alert, oriented x 3. No focal deficits. SKIN: No rashes. No itchiness. LYMPHATIC: No peripheral lymphadenopathy. MUSCULOSKELETAL: No joint swelling, erythema or tenderness. LABORATORY DATA: Sodium 141, potassium 3.7, BUN 13, creatinine 0.8. WBC 9.7, hemoglobin 10.6, platelet count 274. Urinalysis, wbc's 5. RADIOLOGY: MRCP shows cholelithiasis and hydrops gallbladder. ASSESSMENT: A 25-year-old female presented with abdominal pain. CURRENT PROBLEMS: Include: * Cholecystitis. * Abdominal pain. * Morbid obesity. * Anemia. PLAN: * Presented to medical floor. * The patient will be placed on clear liquid diet. * General Surgery evaluation. * Morphine as needed for pain. * Tylenol as needed for pain or fever. * Zofran as needed for nausea, vomiting. * The patient will be started on Zosyn. TID: [id number] RECEIPT: [id number] MTDD
[2025-05-22] MEDS ORDERED: PoTASSium chloRIDE 20MEQ ER 20 MEQ ERTAB PO PRN (08:30)
[2025-05-22] MEDS ORDERED: PoTASSium chloRIDE 20MEQ/100ML 100 ML IV PRN (08:30)
[2025-05-22] MEDS ORDERED: PoTASSium chl 10% ELIXIR 20MEQ 20 MEQ/15 ML UDCUP PO PRN (08:30)
[2025-05-22 08:51] VITALS: O2SAT 96
[2025-05-22] MEDS: ENOXAPARIN SODIUM 30 MG/0.3 ML SQ SCH (08:51)
[2025-05-22] MEDS: MAGNESIUM 2GM PREMIX 50ML 50 ML IV PRN (10:22)
[2025-05-22 11:20] VITALS: BP 108/53; PULSE 66; RESP 16; TEMP 97.7
--- NOTE | 2025-05-22 11:28 | NUR ---
DCP: HOME Pt currently lives with her mom Emma Herr [phone]. Pt does receive $300 a month in [employer]. Pt does not have DME, home health, or provider services. Pt is able to complete ADLs independently. Pt does not have PCP and stated that she was already familiar with community resources. At [place] pt will want to go home and family can assist with transportation. Addendum: 05/22/25 at 1132 by ALONDRA DAIGLE SS Amended: Links added.
--- NOTE | 2025-05-22 13:09 | NUR ---
VERBALLY. ORDER TO DISCHARGE. WROTE PRESCRIPTIONS. TO FOLLOW UP WITH CAROLYN GARCIA IN 2 WEEKS.
--- NOTE | 2025-05-22 14:10 | NUR ---
DISCHARGE DC'D IV X2. NO COMPLICATIONS. AWARE TO MAKE FOLLOW UP APPOINTMENT WITH DR. BECK WITHIN 2 WEEKS. PHONE NUMBER PROVIDE. ANSWERED ALL QUESTIONS AT THIS TIME.
--- NOTE | 2025-05-22 14:31 | DS ---
Discharge Summary Hospital Course This is a 25-year-old female patient with with a history of morbid obesity and asthma who presented to the hospital with abdominal pain, to the right upper quadrant. No nausea or vomiting reported. Denies fever or chills. CT of the abdomen was done, which showed cholelithiasis. MRCP has been done, which shows cholelithiasis with hydropic gallbladder. CBD is mildly dilated without evidence of obstruction. General surgery was consulted and plans to do outpatient cholecystectomy if possible. Patient denying pain this morning and tolerating regular diet well. We will discharged patient to home today and she is to follow up with Dr. Moyer in 2 weeks. FINAL DISCHARGE DIAGNOSIS. Cholecystitis. Abdominal pain, resolved. Morbid obesity. Anemia. Asthma. PLAN: Discharge patient to home today. Referred to new prescriptions for Augmentin 875 x 7 days. Continue same home medications. Follow up with Dr. Moyer in 2 weeks. This case was reviewed and discussed with my supervising physician and the above assessment and plan was formulated and agreed upon. ATTESTATION BY PHYSICIAN I have seen and examined the patient. I reviewed the documentation, medical decision making, and treatment plan as noted by the mid-level provider above. I agree with the findings and plan of care. DOMINIC CHAUHAN MD, MIRTA L [employer] OPERATOR May 22, 2025 14:31
== END 2025-05-22 14:56 | disposition home or self-care (01) ==
LOC: EDH 04:03 → EDBD 04:03 → INTOOBSV 04:04 → EDHIP 04:04 → 3AH 10:55
PROVIDERS: ADMIT Internal Medicine Infectious Disease; ATTEND Internal Medicine Infectious Disease
DX: K80.60 Calculus of gallbladder and bile duct with cholecystitis, unspecified, without obstruction (principal); J45.901 Unspecified asthma with (acute) exacerbation; D64.9 Anemia, unspecified; E66.01 Morbid (severe) obesity due to excess calories; J45.909 Unspecified asthma, uncomplicated; Z68.41 Body mass index [BMI] 40.0-44.9, adult; Z98.890 Other specified postprocedural states; Z79.899 Other long term (current) drug therapy
CPT/HCPCS: 99285; 74178; 74181; 96361 ×5; 76705; 96375; 80053; 85025; 81001; 81025; 36415 ×2; 94640; 96365; 96366; 83735; 80048; 85027; 96372; Q0162; J2919; J7120; Q9967; J1171; G0378; J3475; J1650

== ENCOUNTER 2025-07-01 11:39 | Inpatient (IN) | payer SELFPAY ==
[~2025-07-01] VITALS: Ht 162.6 cm; Wt 90.7 kg
[~2025-07-01 11:39] MED LIST changes: -ALBU18HF7 IH; +ALBU2.5V2 NEB; -DOXY-466 PO; -METH4TAB3 PO; -MONT-39 PO
--- NOTE | 2025-07-01 11:45 | ERN ---
ED Note History of Present Illness Stated Complaint: ASTHMA EXACERBATION Chief Complaint: Adult-Asthma Time Seen by MD: 11:41 Dictation: PATIENT IS A 25-YEAR-OLD FEMALE COMING IN VIA EMS WITH A AN ACUTE ASTHMA FLARE ONSET THIS MORNING. NO FEVER NO CHILLS NO NAUSEA VOMITING. SHE HAS HAD A COUGH THAT IS NONPRODUCTIVE. EMS ARRIVED AND ADMINISTERED ALBUTEROL 2.5 AND TERBUTALINE STATES SHE FEELS BETTER. SHE HAS NO PRIMARY CARE DOCTOR STATES SHE RELIES ON EMERGENCY ROOMS FOR HER MEDICAL CARE. NO ACUTE DISTRESS AT THIS TIME. Allergies: Coded Allergies: No Known Drug Allergies (Verified Allergy, Unknown, 05/21/25) Home Meds Reported Medications Albuterol Sulfate (Albuterol Sulfate) 2.5 Mg/3 Ml (0.083 %) Vial.neb, 1 VIAL NEB Q4HPRN PRN for wheezing 05/21/25 Past Medical History Past Medical History: No Pertinent History Surgical History: None Family History: Negative Social History: Negative, Lives with family History: Not Applicable : 1 Para: 0 Aborts: 0 RN Note Reviewed/Agreed w/PFSH: Yes Review of System Dictation CONSTITUTIONAL: NEGATIVE EXCEPT FOR HPI HEAD/FACE: NEGATIVE EXCEPT FOR HPI EENT: NEGATIVE EXCEPT FOR HPI RESPIRATORY: NEGATIVE EXCEPT FOR HPI SOB/WHEEZING GASTROINTESTINAL/ABDOMINAL: NEGATIVE EXCEPT FOR HPI GENITOURINARY: NEGATIVE EXCEPT FOR HPI MUSCULOSKELETAL: NEGATIVE EXCEPT FOR HPI INTEGUMENTARY: NEGATIVE EXCEPT FOR HPI NEUROLOGICAL/PSYCH: NEGATIVE EXCEPT FOR HPI HEMATOLOGIC/LYMPHATIC: NEGATIVE EXCEPT FOR HPI ALL SYSTEMS NEGATIVE, EXCEPT NOTED ABOVE. 13 POINT REVIEW OF SYSTEMS ASSESSED AND ALL NEGATIVE EXCEPT FOR ABOVE. Initial Vital Sign VS Vital Signs Date Time Temp Pulse Resp B/P (MAP) Pulse Ox O2 Delivery O2 Flow Rate FiO2 07/01/25 11:41 98.8 132 25 129/56 94 Room Air 0 07/01/25 12:14 32 Physical Exam Dictation VITAL SIGNS REVIEWED GENERAL APPEARANCE: ALERT, ORIENTED X 3, MILD ACUTE DISTRESS, WELL DEVELOPED, NOURISHED. HEAD AND FACE: NON-TRAUMATIC. EYES: PERRL, PINK CONJUNCTIVAS, EYELID NO TRAUMA, ANTERIOR CHAMBER WITH ARCUS SENILIS. EARS: PINNAS INTACT AND NO SIGNS OF TRAUMA OR ERYTHEMA EAR CANALS CLEAR AND NO DISCHARGE TM NO ERYTHEMA NOSE: NO DISCHARGE, NO BLEEDING. OROPHARYNX: MOUTH NORMAL, TONGUE PINK, PHARYNX CLEAR,NO ERYTHEMA, TONSILS NO EXUDATES, NO ABSCESSES NOTED, MUCOUS MEMBRANE MOIST NECK: SUPPLE, NON-TENDER, NO THYROMEGALY, NO MASSES, NO JVD, NO BRUITS BREAST:DEFERRED CHEST:NO TENDERNESS, NO CREPITUS, NO PARADOXICAL MOVEMENT, NO RETRACTIONS LUNGS:CLEAR, WELL-VENTILATED, SYMMETRIC, NO RALES, MILD EXPIRATORY WHEEZING BILATERAL LOWER LOBES. NO TACHYPNEA NO RETRACTIONS HEART: REGULAR RATE, REGULAR RHYTHM, NO MURMUR, NO GALLOPS VASCULAR: NO PERIPHERAL EDEMA, ABDOMEN: SOFT, POSITIVE BOWEL SOUNDS, NONDISTENDED, NO GUARDING, NONTENDER, NO REBOUND, NO MASSES NO HEPATOMEGALY, NO SPLENOMEGALY, NO ROGERS'S SIGN, NO HERNIAS. RECTAL: DEFERRED GENITAL: DEFERRED NEUROLOGICAL: NORMAL SPEECH, MOTOR FUNCTION INTACT, SENSORY FUNCTION INTACT MUSCULOSKELETAL: NECK NONTENDER, FULL RANGE OF MOTION, BACK NONTENDER, FULL RANGE OF MOTION, EXTREMITIES: NONTENDER, FULL RANGE OF MOTION SKIN: COLOR PINK, DRY, NO TURGOR, NO RASH, NO LACERATIONS, NO ABRASIONS, NO CONTUSIONS. LYMPHATIC: DEFERRED Results (Laboratory/Radiology) Laboratory/Radiology Laboratory Tests Test 07/01/25 13:18 07/01/25 13:38 White Blood Count 10.8 K/uL (4.8-10.8) Red Blood Count 4.59 MIL/uL (4.00-5.50) Hemoglobin 11.8 g/dL (12.0-16.0) L Hematocrit 36.9 % (36-48) Mean Corpuscular Volume 80.4 fL (79-99) Mean Corpuscular Hemoglobin 25.7 pg (27.0-33.0) L Mean Corpuscular Hemoglobin Concent 32.0 g/dL (32.0-36.0) Red Cell Distribution Width 14.6 % (11.0-15.5) Platelet Count 337 K/uL (130-400) Mean Platelet Volume 11.1 fL (7.5-10.5) H Immature Granulocyte % (Auto) 0.5 % (0-1) Neutrophils (%) (Auto) 83.0 % (40.0-77.0) H Lymphocytes (%) (Auto) 11.2 % (21.0-51.0) L Monocytes (%) (Auto) 2.6 % (3.0-13.0) L Eosinophils (%) (Auto) 2.0 % (0.0-8.0) Basophils (%) (Auto) 0.7 % (0.0-5.0) Neutrophils # (Auto) 8.9 K/uL (1.8-7.7) H Lymphocytes # (Auto) 1.2 K/uL (1.0-4.8) Monocytes # (Auto) 0.3 K/uL (0.1-1.0) Eosinophils # (Auto) 0.21 K/uL (0.00-0.70) Basophils # (Auto) 0.07 K/uL (0.00-0.20) Absolute Immature Granulocyte (auto 0.05 K/uL (0-1) Nucleated Red Blood Cells 0.0 % (0.0-0.19) Sodium Level 139 mmol/L (136-145) Potassium Level 3.6 mmol/L (3.5-5.1) Chloride Level 105 mmol/L (101-111) Carbon Dioxide Level 25 mmol/L (21-32) Blood Urea Nitrogen 10 mg/dL (7-18) Creatinine 0.7 mg/dL (0.5-1.0) Glomerular Filtration Rate Calc 124 mL/min (>90) Random Glucose 105 mg/dL (70-105) Lactic Acid Level 1.3 mmol/L (0.8-2.5) Total Calcium 8.9 mg/dL (8.5-10.1) Serum Test, Qualitative NEGATIVE (NEGATIVE) Blood Gas Specimen Type Arterial Arterial Blood pH 7.371 (7.350-7.450) Arterial Blood Partial Pressure CO2 38 mmHg (32-45) Arterial Blood Partial Pressure O2 76.3 mmHg (83.0-108.0) L Arterial Blood HCO3 21.7 mmol/L (21.0-28.0) Arterial Blood Oxygen Saturation 95.0 % (94.0-98.0) Arterial Blood Base Excess -3.1 mmol/L (-2.0-3.0) L Blood Gas Temperature 37.0 CELSIUS (35.5-37.0) Blood Gas Flow-by 3.00 L/min (0.00-15.00) Blood Gas Vent Mode NC (ROOM AIR) FiO2 32.0 % Blood Gas Specimen Comment DAWSON SANTOS-RAH ORDERING PHYSICIAN: RHEINER,DAWSON P BAND SPLICER PROCEDURE: CXR1VW - CHEST 1VW EXAM: CR Chest, 1 View. CLINICAL HISTORY: SOB/WHEEZING COMPARISON: None provided. FINDINGS: LUNGS: There is no mass, infiltrate, or acute pulmonary abnormality. PLEURAL SPACES: No pleural effusion or pneumothorax. MEDIASTINUM: Cardiac size and mediastinal contours within normal limits. BONES: No aggressive appearing osseous lesion seen. IMPRESSION: No acute cardiopulmonary pathology is evident. /[place] Labs Reviewed?: Yes ED Course ED Course Orders Procedure Category Date Status Time Methylprednisolone PHA 07/01/25 Complete Succ 125mg (Solu-Medr 12:00 Albuterol 0.083% PHA 07/01/25 Complete 2.5mg/3ml (Proventil 12:00 Budesonide 0.5 Mg/2 PHA 07/01/25 Complete Ml Inh (Pulmicort 0. 11:42 Arterial Blood Gas RT 07/01/25 Transmitted 12:57 Blood Cult MANUEL 07/01/25 In Process 12:57 Lactic Acid LAB 07/01/25 Complete 12:57 Cbc With Differential LAB 07/01/25 Complete 12:57 Chest 1vw RAD 07/01/25 Resulted 12:57 Basic Metabolic Panel LAB 07/01/25 Complete 12:57 Testing, LAB 07/01/25 Complete Serum Hcg 12:57 Ceftriaxone 2gm Vial PHA 07/01/25 Complete (Rocephin 2gm Inj) 13:00 Arterial Blood Gas LAB 07/01/25 Complete 13:38 Albuterol 0.083% PHA 07/01/25 Complete 2.5mg/3ml (Proventil 13:40 Current Medications Medications (Trade) Dose Ordered Sig/Felicia Route PRN Reason Start Time Stop Time Status Last Admin Dose Admin Albuterol Sulfate (Proventil 0.083% 2.5mg/3ml) 2.5MG ONCE ONCE IH 07/01/25 12:00 07/01/25 12:01 DC 07/01/25 12:16 Albuterol Sulfate (Proventil 0.083% 2.5mg/3ml) 10 mg ONCE STAT IH 07/01/25 13:40 07/01/25 13:42 DC 07/01/25 13:53 Budesonide (Pulmicort 0.5 Mg/2ml) 1 mg ONCE STAT IH 07/01/25 11:42 07/01/25 11:48 DC 07/01/25 12:15 Ceftriaxone Sodium (Rocephin 2gm Inj) 2 gm ONCE ONCE IVPB 07/01/25 13:00 07/01/25 13:01 DC Methylprednisolone Sodium Succinate (Solu-medROL 125MG) 125 mg ONCE ONCE IVP 07/01/25 12:00 07/01/25 12:01 DC 07/01/25 11:59 Vital Signs Date Time Temp Pulse Resp B/P (MAP) Pulse Ox O2 Delivery O2 Flow Rate FiO2 07/01/25 13:54 99 20 8.0 07/01/25 12:18 125 24 07/01/25 12:14 98.2 117 18 119/49 92 Nasal Cannula* 3 32 07/01/25 11:41 98.8 132 25 129/56 94 Room Air 0 1300/PATIENT HAD GOTTEN UP GONE TO THE RESTROOM SHE CAME BACK SHE WAS NOTED TO BE VERY TACHYCARDIC, SATURATIONS RUNNING 87 88% ON ROOM AIR. DIFFUSE EXPIRATORY WHEEZING THROUGHOUT BREATH SOUNDS BILATERALLY. FOLLOW UP WITH ABGS, WE WILL DRAW BLOOD CULTURES, CHEST X-RAY WE WILL GIVE ROCEPHIN AND DRAW SOME LABS AND AN TICIPATE ADMISSION TO THE HOSPITAL FOR ACUTE ASTHMA FLARE. 1350/PATIENT CONTINUES TO HAVE EXPIRATORY WHEEZING THROUGHOUT. SATURATING 95 96% ON 3 L NASAL CANNULA. ABGS DEMONSTRATE NORMAL PH WITH PO2 OF 76%. WE WILL FOLLOW HAVE PATIENT ADMITTED TO THE HOSPITAL FOR ACUTE ASTHMA FLARE, [id number]/ 1400/SPOKE WITH YODIT MONREAL HOSPITALIST REVIEWED LABS AND INTERVENTIONS FOR HYPOXEMIA TO INCLUDE ALBUTEROL OVER 1 HOUR CHEST X-RAY AND ROCEPHIN SHE AGREED TO IT Medical Decision Making MDM MDM: DIFFERENTIAL DIAGNOSIS: ASTHMA FLARE/PNEUMONIA/BRONCHITIS/ACUTE ON CHRONIC RESPIRATORY FAILURE/ELECTROLYTE IMBALANCE/DEHYDRATION/SARS RATIONALE: TESTS CONSIDERED AND ORDERED SECONDARY TO SHARED DECISION MAKING INCLUDE: LABS, [place] RADIOLOGY PREVIOUS OUTSIDE RECORDS REVIEWED: OLD ER VISITS. RISK OF COMPLICATION AND/OR MORBIDITY OR MORTALITY OF PATIENT MANAGEMENT: NONE MEDICATIONS-PER MEDICATION RECONCILIATION NEED FOR HOSPITALIZATION: PATIENT DOES MEET CRITERIA FOR HOSPITALIZATION. NEED FOR EMERGENCY MAJOR/MINOR SURGERY: NO THERE ARE NO SOCIAL CONCERNS WITH THIS PATIENT. PRESCRIPTION DRUG MANAGEMENT PRESCRIPTIONS WILL INCLUDE SYMPTOMATIC CARE PATIENT'S PRIOR EXTERNAL MEDICAL RECORDS FROM OTHER ER VISITS WERE REVIEWED BY ME INDICATED. PRIOR TESTING AND RESULTS FROM PREVIOUS VISITS WERE REVIEWED. PRIOR TESTS WERE TAKEN INTO ACCOUNT WITH MEDICAL DECISION MAKING AND RESOURCE UTILIZATION, INDEPENDENT HISTORIAN/HISTORIANS WERE USED TO OBTAIN COMPLETE MEDICAL HISTORY. I INDEPENDENTLY INTERPRETED THE TEST THAT WERE PERFORMED, RESULTS WERE REVIEWED BY ME AND CONSIDERED FINDINGS ON RADIOLOGY IF ORDERED. MEDICAL MANAGEMENT AND EXAMINATION INTERPRETATION DISCUSSIONS WERE HAD BY ME WITH OTHER QUALIFIED HEALTHCARE PROFESSIONALS INDICATED FOR THE PATIENT'S CARE. DX & DISP Disposition: Inpatient Decision to Admit Time: 13:54 Departure Impression: Primary Impression: Acute asthma exacerbation Additional Impressions: Respiratory distress, Hypoxemia Condition: Stable Referrals: SELF,REFERRAL (PCP) Time of Disposition: 13:55 I have reviewed the case, and I agree with, Diagnosis and Plan DAWSON BOND NP Jul 01, 2025 11:45
[2025-07-01] MEDS: BUDESONIDE 0.5 MG/2 ML INH IH STA (12:15)
--- NOTE | 2025-07-01 12:15 | NUR ---
RT AT BEDSIDE WITH PATIENT
[2025-07-01] MEDS: ALBUTEROL 0.083% 2.5 MG/3 ML INH IH ONE (12:16)
[2025-07-01 12:18] VITALS: PULSE 125; RESP 24
[2025-07-01 13:25] LABS: IMMATURE GRANULOCYTE ABSOLUTE 0.05 K/uL (0-1); NUCLEATED RED BLOOD CELLS 0.0 % (0.0-0.19); PLATELET COUNT (AUTO) 337 K/uL (130-400); RED BLOOD CELL COUNT(AUTO) 4.59 MIL/uL (4.00-5.50); RED CELL DISTRIBUTION WIDTH 14.6 % (11.0-15.5); WHITE BLOOD COUNT (AUTO) 10.8 K/uL (4.8-10.8)
--- NOTE | 2025-07-01 13:26 | HMCIMG ---
EXAM: CR Chest, 1 View. CLINICAL HISTORY: SOB/WHEEZING COMPARISON: None provided. FINDINGS: LUNGS: There is no mass, infiltrate, or acute pulmonary abnormality. PLEURAL SPACES: No pleural effusion or pneumothorax. MEDIASTINUM: Cardiac size and mediastinal contours within normal limits. BONES: No aggressive appearing osseous lesion seen. IMPRESSION: No acute cardiopulmonary pathology is evident. /[place]
[2025-07-01 13:34] LABS: CREATININE 0.7 mg/dL (0.5-1.0); GLOMERULAR FILTR. RATE CALC 124.0 mL/min (>90); GLUCOSE,RANDOM 105.0 mg/dL (70-105); SODIUM SERUM 139.0 mmol/L (136-145); UREA NITROGEN, BLOOD 10.0 mg/dL (7-18)
[2025-07-01 13:40] LABS: ABG BASE EXCESS -3.1 mmol/L (-2.0-3.0); ABG HCO3 21.7 mmol/L (21.0-28.0); ABG OXYGEN SATURATION 95.0 % (94.0-98.0); ABG PCO2 38 mmHg (32-45); ABG PH 7.371 (7.350-7.450); PO2, ARTERIAL BG 76.3 mmHg (83.0-108.0); TEMPERATURE, CELSIUS BG 37.0 CELSIUS (35.5-37.0); VENT MODE, BG NC (ROOM AIR)
[2025-07-01] MEDS: ALBUTEROL 0.083% 2.5 MG/3 ML INH IH STA (13:53)
[2025-07-01 13:54] VITALS: PULSE 99; RESP 20; O2SAT 96
--- NOTE | 2025-07-01 14:05 | NUR ---
NO MEDICATIONS TO RECONCILE PT DOES NOT HAVE ANY PRESCRIBED MEDS BUYS MEDICATIONS FROM [place].
--- NOTE | 2025-07-01 14:16 | HP ---
[facility] HISTORY AND PHYSICAL Date of Service: Jul 01, 2025 Time of Service: 14:12 HISTORY OF PRESENT ILLNESS: [ ] PCP: Self Referral admission Date: 07/01/25 CC: asthmatic episodes This is a 25-year-old female was brought in by EMS patient is presented with flare-up of her asthma presenting in ED with asthmatic distress. Dyspneic with no exertion. Onset started this morning. Severity was severe. Aggravated factors activity, alleviating factors none. As per ER physician in route patient's saturations were 80s. Patient has underlying history of asthma. ER workup patient received high dose of Solu-Medrol and bronchodilators. We will bring critical team logistics technician's on board. Patient denies fever chills nonproductive cough. She reports taking her inhaler but it was not helping her symptoms. Patient was seen in ED she is on continuous albuterol treatment dyspneic lying in bed. She is fully awake alert oriented x3 spoke to logistics technician's nurse practitioner Diane she wants patient to be admitted in ICU given to she is high-risk for decompensated. REVIEW OF SYSTEMS A14 point ROS was obtained all relevant positives were documented otherwise ROS negative PAST MEDICAL HISTORY: [ ] Asthma obesity PAST SURGICAL HISTORY: [ ] Negative PAST SOCIAL HISTORY: [ ] Denies smoking tobacco alcohol use FAMILY HISTORY: [ ] Noncontributory Coded Allergies: No Known Drug Allergies (Verified Allergy, Unknown, 05/21/25) PHYSICAL EXAM GENERAL APPEARANCE: The patient is awake, alert, and oriented, in no acute cardiopulmonary distress. NEUROLOGICAL: Cranial nerves II-XII grossly intact. Motor is 5/5 in bilateral upper and lower extremities proximal to distal. No sensory deficits. HEENT: Face is symmetric. Pupils are equal and reactive. Extraocular movements are intact. NECK: Supple. No JVD. No thyromegaly. No submental, submandibular, pre- /postauricular, occipital or supraclavicular lymphadenopathy. CHEST: Normal chest expansion. No Telemetry. LUNGS: Absence of any rales, rhonchi or any wheezing. CARDIOVASCULAR: Regular. S1 and S2 normal. No appreciable rubs, murmurs or gallops. ABDOMEN: Soft, nontender, and nondistended. There is no rebound, voluntary guarding, or rigidity. : Deferred. No Liu. EXTREMITIES: Non-edematous and not cyanotic. No clubbing. Good capillary refill. SKIN: No skin breakdown. Vital Sign (Last 24 Hours) 07/01/25 07/01/25 12:14 13:54 Temp 98.2 Pulse 99 Resp 20 B/P (MAP) 119/49 Pulse Ox 92 O2 Delivery Nasal Cannula* O2 Flow Rate 8.0 FiO2 32 LABS: Laboratory: Test 07/01/25 13:38 07/01/25 13:18 Range/Units Blood Gas Specimen Type Arterial Arterial Blood pH 7.371 7.350-7.450 Arterial Blood Partial Pressure CO2 38 32-45 mmHg Arterial Blood Partial Pressure O2 76.3 L 83.0-108.0 mmHg Arterial Blood HCO3 21.7 21.0-28.0 mmol/L Arterial Blood Oxygen Saturation 95.0 94.0-98.0 % Arterial Blood Base Excess -3.1 L -2.0-3.0 mmol/L Blood Gas Temperature 37.0 35.5-37.0 CELSIUS Blood Gas Flow-by 3.00 0.00-15.00 L/min Blood Gas Vent Mode NC ROOM AIR FiO2 32.0 % Blood Gas Specimen Comment LR,DAWSON-BUS AIDE White Blood Count 10.8 4.8-10.8 K/uL Red Blood Count 4.59 4.00-5.50 MIL/uL Hemoglobin 11.8 L 12.0-16.0 g/dL Hematocrit 36.9 36-48 % Mean Corpuscular Volume 80.4 79-99 fL Mean Corpuscular Hemoglobin 25.7 L 27.0-33.0 pg Mean Corpuscular Hemoglobin Concent 32.0 32.0-36.0 g/dL Red Cell Distribution Width 14.6 11.0-15.5 % Platelet Count 337 130-400 K/uL Mean Platelet Volume 11.1 H 7.5-10.5 fL Immature Granulocyte % (Auto) 0.5 0-1 % Neutrophils (%) (Auto) 83.0 H 40.0-77.0 % Lymphocytes (%) (Auto) 11.2 L 21.0-51.0 % Monocytes (%) (Auto) 2.6 L 3.0-13.0 % Eosinophils (%) (Auto) 2.0 0.0-8.0 % Basophils (%) (Auto) 0.7 0.0-5.0 % Neutrophils # (Auto) 8.9 H 1.8-7.7 K/uL Lymphocytes # (Auto) 1.2 1.0-4.8 K/uL Monocytes # (Auto) 0.3 0.1-1.0 K/uL Eosinophils # (Auto) 0.21 0.00-0.70 K/uL Basophils # (Auto) 0.07 0.00-0.20 K/uL Absolute Immature Granulocyte (auto 0.05 0-1 K/uL Nucleated Red Blood Cells 0.0 0.0-0.19 % Sodium Level 139 136-145 mmol/L Potassium Level 3.6 3.5-5.1 mmol/L Chloride Level 105 101-111 mmol/L Carbon Dioxide Level 25 21-32 mmol/L Blood Urea Nitrogen 10 7-18 mg/dL Creatinine 0.7 0.5-1.0 mg/dL Glomerular Filtration Rate Calc 124 >90 mL/min Random Glucose 105 70-105 mg/dL Lactic Acid Level 1.3 0.8-2.5 mmol/L Total Calcium 8.9 8.5-10.1 mg/dL Serum Test, Qualitative NEGATIVE NEGATIVE Current Medications Medications (Trade) Dose Ordered Sig/Felicia Route PRN Reason Start Time Stop Time Status Last Admin Dose Admin Acetaminophen (TYLenol 325MG TAB) 650 mg Q4H PRN PO TEMPERATURE GREATER THAN 101.5 07/01/25 14:30 07/31/25 14:29 UNV Albuterol Sulfate (Proventil 0.083% 2.5mg/3ml) 10 mg ONCE STAT IH 07/01/25 13:40 07/01/25 13:42 DC 07/01/25 13:53 10 MG Azithromycin 250 ml @ 250 mls/hr Q24H IVPB 07/01/25 14:30 07/11/25 14:29 UNV Budesonide (Pulmicort 0.5 Mg/2ml) 1 mg ONCE STAT IH 07/01/25 11:42 07/01/25 11:48 DC 07/01/25 12:15 1 MG Ceftriaxone Sodium (ROCEphine 1G INJ) 1 gm Q24H IVPB 07/02/25 14:30 07/12/25 14:29 UNV Methylprednisolone Sodium Succinate (Solu-medROL 40MG) 60 mg Q8H IVP 07/01/25 14:30 07/31/25 14:29 UNV Montelukast Sodium (SinguLAIR) 10 mg HS PO 07/01/25 21:00 07/31/25 20:59 UNV Ondansetron HCl (zoFRAN 4MG INJ) 4 mg Q6H PRN IVP NAUSEA/VOMITING 07/01/25 14:30 07/31/25 14:29 UNV DIAGNOSTICS / RADIOLOGY: [ ] ASSESSMENT: Suspected cap, POA Sepsis, POA Status asthmaticus POA Acute hypoxemic respiratory failure, POA Obesity BMI of 34.3 History of untreated asthma PLAN: Admit: ICU high risk for decompensation condition: Guarded Status: Full code IVF: NS at 75 mL/hour Consultants logistics technician's Antibiotics: Rocephin1 g every24 hours azithromycin 500 IV daily Oxygen supplemental to keep O2 sats above 92% IV steroids Solu-Medrol 60 mg IV every 8 hours. Bronchodilators scheduled every 6 hours Montelukast 10 mg at bedtime Microbiology gram stain respiratory culture Labs cbc, cmp, mag+ Replace electrolytes as needed as per protocol to keep potassium above 4.0 magnesium 2.0. Home medications pending to be reviewed by RN nurse. PRN: MEDICATIONS Tylenol 650 mg po every 4 hrs for fever zofran 4 mg IV every 6 hrs for n/v Hydralazine 5 mg IV every 4 hrs systolic pressure > 160 bowel regiment: lactulose 20 gm PO BID PRN constipation Aspiration precautions Supportive measures: DVT ppx, GI ppx all questions answered time spent: > 35 min Supervising MD: Dr. Ryan Resendiz c/d This document was generated in part using voice recognition software, occasional wrong word or sound alike substitutions may have occurred due to the inherent limitations of voice recognition software. Read the chart carefully and recognize using context, where the substitutions have occurred. Although every effort was made to edit the content, iron erector and typing errors may occur ADVANCED CARE PLANNING 1. Which of the following were discussed? Hospice Care - Yes / No Therapeutic options - Yes / No Advance Directives - Yes / No Other discussions - 2. Discussed with who? 3. Voluntary nature of this service was explained to the patient? Yes / No 4. Amount of time spent - 5. Reviewed by Physician? (if this service was performed by NPP) Yes / No ATTESTATION BY PHYSICIAN I have seen and examined the patient. I reviewed the documentation, medical decision making, and treatment plan as noted by the mid-level provider above. I agree with the findings and plan of care. Edwina Davis MD, ELIZABETH NP Jul 01, 2025 14:16
--- NOTE | 2025-07-01 14:16 | NUR ---
PULMONOLOGY CONSULT THI FILM TESTS CHECKER AT BEDSIDE.
[2025-07-01] MEDS ORDERED: Solu-medROL 40MG VIAL IVP SCH (14:30)
[2025-07-01] MEDS ORDERED: MAGNESIUM 2GM PREMIX 50ML 50 ML IV SCH (14:30)
[2025-07-01 14:37] VITALS: PULSE 98; RESP 20; O2SAT 96
[2025-07-01] MEDS: MAGNESIUM 2GM PREMIX 50ML 50 ML IV ONE (14:42)
--- NOTE | 2025-07-01 14:59 | CONS ---
[facility] CONSULTATION NOTE Date Patient Seen: Jul 01, 2025 Time of Visit: 14:36 Supervising Physician: Joaquim Choi MD Reason for Consultation: Astma exacerbation Primary Care Physician: None Outpatient Specialists: [ ] Inpatient Consults: [ ] Attending Physician: Soy team PROBLEM LIST: Status asthmaticus POA Acute hypoxemic respiratory failure, POA Neutrophilia, POA Suspected cap, POA Sepsis, POA Obesity BMI of 34.3 History of untreated asthma and previous intubation at the age of 14. HPI: We were consulted by primary team for asthma exacerbation. This is a 25-year-old female with a past medical history of asthma and obesity with a BMI of 34.3 who presented to the ED for evaluation of acute shortness for breath that began earlier this morning. The patient reports nonproductive cough but denies fever, chills, chest pain, hemoptysis, or recent illness. She has no known sick contacts. She was brought to the ED via EMS for she received albuterol 2.5 mg nebulizer and terbutaline, with some symptomatic improvement. She reports no current or past tobacco , alcohol or marijuana use. She has no established primary care provider and relies on ED for episodic care. She reports a history of intubation for asthma at the age of 14 but has had no pulmonology follow up since. Her only current medications albuterol inhaler PRN. Vital signs: Heart rate of 125, blood pressure 119/49, respiratory rate of 32, SpO2 of 92% on 3 L via nasal cannula and afebrile.. Pertinent laboratory shows an ABG of pH 7.37 pCO2 of 38 PO2 of 76.3 and bicarb 21.7. CBC pertinent for white count that is normal hemoglobin 11.8 hematocrit 36.9 platelet of within normal limits on differential neutrophils are elevated 83% and lymphocytes 11.2% chemistries shows within normal limits and test is negative. Chest x-ray shows hyperinflation with flattening of the diaphragms no focal infiltrates, effusions or pneumothorax. PAST MEDICAL HX: see above PAST SURGICAL HX: noncontributory SOCIAL HISTORY: No tobacco, ETOH, or illicit drug use Coded Allergies: No Known Drug Allergies (Verified Allergy, Unknown, 05/21/25) REVIEW OF SYSTEMS: Const: no fever, fatigue, or weight changes Eyes: no recent vision problems ENT: No congestion, ear pain, or sore throat C/V: no chest pain, palpitations or edema Resp:+ positive for dyspnea and wheezing GI: No abdominal pain, nausea, vomiting, constipation, or diarrhea : No incontinence of or dyuria M/S: No joint or pain swelling Skin: No rash Neuro: no headache, focal numbness, or weakness, dizziness or seizures Psych: no depression or anxiety Heme: no abnormal bruising or bleeding Lymph: no swollen glands PHYSICAL EXAM: GENERAL: Awake alert and oriented x3, moderate respiratory distress, speaks in two word phrases. HEENT: EOMI, Sclera non icteric, moist mucosa NECK: Supple, no JVD, trachea midline LUNGS: Audible wheezing in bilateral upper and lower lung gautam, prolonged expiratory phase. Tachypneic HEART: Tachycardic, regular rhythm no murmur. ABD: Abdomen soft, nontender. Bowel sounds present EXT: No clubbing cyanosis or edema NEURO: Awake alert and oriented x3, follows commands, anxious. Vital Signs (last 8hr) Date Time Temp Pulse Resp B/P (MAP) Pulse Ox O2 Delivery O2 Flow Rate FiO2 07/01/25 13:54 99 20 8.0 07/01/25 12:18 125 24 07/01/25 12:14 98.2 117 18 119/49 92 Nasal Cannula* 3 32 07/01/25 11:41 98.8 132 25 129/56 94 Room Air 0 LABS: Hematology Labs: Test 07/01/25 13:18 Range/Units White Blood Count 10.8 4.8-10.8 K/uL Red Blood Count 4.59 4.00-5.50 MIL/uL Hemoglobin 11.8 L 12.0-16.0 g/dL Hematocrit 36.9 36-48 % Mean Corpuscular Volume 80.4 79-99 fL Mean Corpuscular Hemoglobin 25.7 L 27.0-33.0 pg Mean Corpuscular Hemoglobin Concent 32.0 32.0-36.0 g/dL Red Cell Distribution Width 14.6 11.0-15.5 % Platelet Count 337 130-400 K/uL Mean Platelet Volume 11.1 H 7.5-10.5 fL Immature Granulocyte % (Auto) 0.5 0-1 % Neutrophils (%) (Auto) 83.0 H 40.0-77.0 % Lymphocytes (%) (Auto) 11.2 L 21.0-51.0 % Monocytes (%) (Auto) 2.6 L 3.0-13.0 % Eosinophils (%) (Auto) 2.0 0.0-8.0 % Basophils (%) (Auto) 0.7 0.0-5.0 % Neutrophils # (Auto) 8.9 H 1.8-7.7 K/uL Lymphocytes # (Auto) 1.2 1.0-4.8 K/uL Monocytes # (Auto) 0.3 0.1-1.0 K/uL Eosinophils # (Auto) 0.21 0.00-0.70 K/uL Basophils # (Auto) 0.07 0.00-0.20 K/uL Absolute Immature Granulocyte (auto 0.05 0-1 K/uL Nucleated Red Blood Cells 0.0 0.0-0.19 % Chemistry Labs: Test 07/01/25 13:18 Range/Units Sodium Level 139 136-145 mmol/L Potassium Level 3.6 3.5-5.1 mmol/L Chloride Level 105 101-111 mmol/L Carbon Dioxide Level 25 21-32 mmol/L Blood Urea Nitrogen 10 7-18 mg/dL Creatinine 0.7 0.5-1.0 mg/dL Glomerular Filtration Rate Calc 124 >90 mL/min Random Glucose 105 70-105 mg/dL Lactic Acid Level 1.3 0.8-2.5 mmol/L Total Calcium 8.9 8.5-10.1 mg/dL Serum Test, Qualitative NEGATIVE NEGATIVE DIAGNOSTICS / RADIOLOGY RESULTS: [[place] [id number] [address] IMAGING REPORT Signed PATIENT: RANDOLPH TAYLOR MR#: [id number] : 2000 SEX: F AGE: 25 LOCATION: [facility] ORDER [id number] STATUS: REG REPORT#: [id number] SERVICE 1257 REASON: SOB/WHEEZING ORDERING PHYSICIAN: DAWSON BOND NP PROCEDURE: CXR1VW - CHEST 1VW EXAM: CR Chest, 1 View. CLINICAL HISTORY: SOB/WHEEZING COMPARISON: None provided. FINDINGS: LUNGS: There is no mass, infiltrate, or acute pulmonary abnormality. PLEURAL SPACES: No pleural effusion or pneumothorax. MEDIASTINUM: Cardiac size and mediastinal contours within normal limits. BONES: No aggressive appearing osseous lesion seen. IMPRESSION: No acute cardiopulmonary pathology is evident. /[place] DICTATED BY: GRABIEL ADLER Jr., MD DATE: 07/01/251424 ELECTRONICALLY SIGNED BY: GRABIEL DALER Jr., MD DATE: 07/01/251424 ] PLAN This is a 25-year-old female with a poorly-controlled asthma on no maintenance therapy, no PCP, prior intubation history who presents with moderate respiratory distress tachycardia and bilateral wheezing likely secondary to asthma exacerbation. Given her limited reserve, history of prior intubation and current moderate distress with only partial response to ED treatments she is at high- risk for rapid decompensation. Admit to the ICU for close respiratory and hemodynamic monitoring Ipratropium nebs q.4 hours Pulmicort nebs q.12 hours Methylprednisolone 60 mg IV q.6 hours ABG for signs of worsening respiratory failure and increased work of breathing Maintain O2 sats above 92% on high-flow nasal cannula BiPAP if worsening distress or fatigue 2 g of magnesium sulfate IV now Per per for intubation if clinical decline worsening hypercapnia altered mental status or worsening respiratory distress. Monitor electrolytes Patient will need to follow up as outpatient once discharged with second helper of choice. NEURO: Minimize central acting medications as possible. Fall Precautions. Well lighted room through the day and minimize interruptions through the night to prevent acute delirium. PULMONARY: Supplemental 02 as needed Titrate Fio2 to keep Spo2 > or = 90% DuoNebs and CPT as needed IS hourly while awake for pulmonary hygiene Out of bed to chair as tolerated CARDIOVASCULAR: Follow hemodynamics. Titrate vasopressor to keep MAP >65 or systolic blood pressure >95mmHg DRIPS: none LINES: PIV GI & NUTRITION: Continue nutritional support Aspirations precautions Prokinetic agents and laxatives as needed KIDNEYS & ELECTROLYTES: Strict monitoring of intake and output Daily weights Avoid nephrotoxic agents Monitor electrolytes and replace as needed Goal urine output of 30mL/hr or 0.5mL/kg/hr ENDOCRINE: Maintain blood glucose between 100-180 at all times. Insulin sliding scale for blood glucose management INFECTIOUS DISEASE: Trend temperature. [place]-culture if febrile. Micro: [ ] Respiratory culture Blood cultures UA and urine culture Antibiotics: Rocephin Azithromycin HEMATOLOGY & COAGULATION: Monitor H&H. Keep Hgb > 7 Transfuse 1 unit of PRBC for Hgb < 7 Transfuse 1 pack of platelets of platelets < 20, 000 Watch for any signs and symptoms of bleeding SKIN: Pressure ulcer prevention per facility protocol Rehab: PT/OT Prophylaxis: GI: Protonix DVT: Lovenox Code Status: Full Resuscitation Disposition: ICU Other: Total patient care time exceeds 35 minutes excluding all procedures. Case was discussed and seen with my supervising physician. The above plan was formulated and agreed upon. ATTESTATION BY PHYSICIAN I have evaluated the patient chart, medical records, and spoke with appropriate staff. I reviewed the documentation, medical decision making, and treatment plan as noted by the mid-level provider above. I agree with the findings and plan of care. Joaquim Choi MD, [facility] Jul 01, 2025 14:59
[2025-07-01] MEDS: Solu-medROL 40MG VIAL IVP SCH (15:03)
[2025-07-01] MEDS: AZITHROMYCIN 500MG+NS 250ML 250 ML IVPB SCH (15:31)
[2025-07-01 18:35] VITALS: PULSE 112; RESP 22; O2SAT 93
[2025-07-01] MEDS: BUDESONIDE 0.5 MG/2 ML INH IH SCH (18:35)
[2025-07-01] MEDS: SODIUM CHLORIDE 3% FOR INHALATION 4 ML/AMP VIAL.NEB IH ONE ×2 (18:52→23:22)
[2025-07-01] MEDS: MAGNESIUM 2GM PREMIX 50ML 50 ML IV SCH (19:30)
[2025-07-01 20:03] VITALS: PULSE 104; RESP 19; O2SAT 96
[2025-07-01 23:03] VITALS: PULSE 104; RESP 19
[2025-07-02] VITALS (28 sets, daily range): BP systolic 91–121; BP diastolic 50–74; PULSE 48–97; RESP 6–20; TEMP 97.7–98.1; O2SAT 95–98
[2025-07-02] MEDS: SODIUM CHLORIDE 3% FOR INHALATION 4 ML/AMP VIAL.NEB IH ONE (02:35)
--- NOTE | 2025-07-02 03:30 | NUR ---
REPORT GIVEN TO ARISTIDES NICHOLS.
--- NOTE | 2025-07-02 03:34 | NUR ---
PATIENT TRANSPORTED TO 218
[2025-07-02] MEDS: ENOXAPARIN SODIUM 40 MG/0.4 ML SYRINGE SQ SCH (07:58)
--- NOTE | 2025-07-02 09:17 | PN ---
[facility] PROGRESS NOTE Date Patient Seen: Jul 02, 2025 Time of Visit: 09:17 Supervising Physician: KONSTANTIN EVANS MD Primary Care Physician: None Outpatient Specialists: [ ] Inpatient Consults: [ ] Attending Physician: Soy team PROBLEM LIST: Status asthmaticus POA, improved Acute hypoxemic respiratory failure, POA Neutrophilia, POA Suspected cap, POA Sepsis, POA Obesity BMI of 34.3 History of untreated asthma and previous intubation at the age of 14. INTERVAL HISTORY: Patient is awake alert and oriented x3. She is hemodynamically stable heart rate in the 70s sinus rhythm. Patient reports she has been in better. No further audible wheezing on auscultation. Peak flow 200. she is stable to downgrade to medical floor. We will start Spiriva inhaler. change Atrovent to duo nebs. REVIEW OF SYSTEMS: Const: no fever, fatigue, or weight changes Eyes: no recent vision problems ENT: No congestion, ear pain, or sore throat C/V: no chest pain, palpitations or edema Resp:reports decreased dyspnea GI: No abdominal pain, nausea, vomiting, constipation, or diarrhea : No incontinence of or dyuria M/S: No joint or pain swelling Skin: No rash Neuro: no headache, focal numbness, or weakness, dizziness or seizures Psych: no depression or anxiety Heme: no abnormal bruising or bleeding Lymph: no swollen glands PHYSICAL EXAM: GENERAL: Awake alert and oriented x3, moderate respiratory distress, speaks in two word phrases. HEENT: EOMI, Sclera non icteric, moist mucosa NECK: Supple, no JVD, trachea midline LUNGS: Audible wheezing in bilateral upper and lower lung gautam, prolonged expiratory phase. Tachypneic HEART: Tachycardic, regular rhythm no murmur. ABD: Abdomen soft, nontender. Bowel sounds present EXT: No clubbing cyanosis or edema NEURO: Awake alert and oriented x3, follows commands, anxious. Vital Signs (last 8hr) Date Time Temp Pulse Resp B/P (MAP) Pulse Ox O2 Delivery O2 Flow Rate FiO2 07/02/25 06:47 58 18 N/Cannula Low lpm 2.0 28 07/02/25 06:44 58 18 07/02/25 06:11 59 12 102/57 99 Nasal Cannula 3.0 07/02/25 05:56 62 17 110/65 96 Nasal Cannula 3.0 07/02/25 05:41 54 18 103/53 97 Nasal Cannula 3.0 07/02/25 05:26 58 17 110/68 98 Nasal Cannula 3.0 07/02/25 05:11 74 9 121/73 96 Nasal Cannula 3.0 07/02/25 04:56 49 20 111/54 96 Nasal Cannula 3.0 07/02/25 04:41 48 17 112/57 98 Nasal Cannula 3.0 07/02/25 04:26 54 19 115/60 97 Nasal Cannula 3.0 07/02/25 04:12 59 19 115/69 96 Nasal Cannula 3.0 07/02/25 04:00 98 Nasal Cannula* 3 32 07/02/25 03:25 98.8 60 12 107/82 99 Nasal Cannula* 3 32 07/02/25 02:25 53 18 07/02/25 02:25 53 18 N/Cannula Low lpm 3.0 32 07/02/25 02:25 98.8 58 13 118/75 98 Nasal Cannula* 3 32 07/02/25 01:25 98.8 80 20 110/60 96 Nasal Cannula* 3 32 LABS: Hematology Labs: Test 07/01/25 13:18 Range/Units White Blood Count 10.8 4.8-10.8 K/uL Red Blood Count 4.59 4.00-5.50 MIL/uL Hemoglobin 11.8 L 12.0-16.0 g/dL Hematocrit 36.9 36-48 % Mean Corpuscular Volume 80.4 79-99 fL Mean Corpuscular Hemoglobin 25.7 L 27.0-33.0 pg Mean Corpuscular Hemoglobin Concent 32.0 32.0-36.0 g/dL Red Cell Distribution Width 14.6 11.0-15.5 % Platelet Count 337 130-400 K/uL Mean Platelet Volume 11.1 H 7.5-10.5 fL Immature Granulocyte % (Auto) 0.5 0-1 % Neutrophils (%) (Auto) 83.0 H 40.0-77.0 % Lymphocytes (%) (Auto) 11.2 L 21.0-51.0 % Monocytes (%) (Auto) 2.6 L 3.0-13.0 % Eosinophils (%) (Auto) 2.0 0.0-8.0 % Basophils (%) (Auto) 0.7 0.0-5.0 % Neutrophils # (Auto) 8.9 H 1.8-7.7 K/uL Lymphocytes # (Auto) 1.2 1.0-4.8 K/uL Monocytes # (Auto) 0.3 0.1-1.0 K/uL Eosinophils # (Auto) 0.21 0.00-0.70 K/uL Basophils # (Auto) 0.07 0.00-0.20 K/uL Absolute Immature Granulocyte (auto 0.05 0-1 K/uL Nucleated Red Blood Cells 0.0 0.0-0.19 % Chemistry Labs: Test 07/01/25 13:18 Range/Units Sodium Level 139 136-145 mmol/L Potassium Level 3.6 3.5-5.1 mmol/L Chloride Level 105 101-111 mmol/L Carbon Dioxide Level 25 21-32 mmol/L Blood Urea Nitrogen 10 7-18 mg/dL Creatinine 0.7 0.5-1.0 mg/dL Glomerular Filtration Rate Calc 124 >90 mL/min Random Glucose 105 70-105 mg/dL Lactic Acid Level 1.3 0.8-2.5 mmol/L Total Calcium 8.9 8.5-10.1 mg/dL Serum Test, Qualitative NEGATIVE NEGATIVE DIAGNOSTICS / RADIOLOGY RESULTS: [ ] PLAN Pt improved . no further wheezing this morning. Spiriva inhaler Downgrade to med/surg Duonebs q 4hrs. Pulmicort nebs q.12 hours Methylprednisolone 60 mg IV q.6 hours ABG for signs of worsening respiratory failure and increased work of breathing Maintain O2 sats above 92% on high-flow nasal cannula BiPAP if worsening distress or fatigue Patient will need to follow up as outpatient once discharged with cone operator of choice. NEURO: Minimize central acting medications as possible. Fall Precautions. Well lighted room through the day and minimize interruptions through the night to prevent acute delirium. PULMONARY: Supplemental 02 as needed Titrate Fio2 to keep Spo2 > or = 90% DuoNebs and CPT as needed IS hourly while awake for pulmonary hygiene Out of bed to chair as tolerated CARDIOVASCULAR: Follow hemodynamics. Titrate vasopressor to keep MAP >65 or systolic blood pressure >95mmHg DRIPS: none LINES: PIV GI & NUTRITION: Continue nutritional support Aspirations precautions Prokinetic agents and laxatives as needed KIDNEYS & ELECTROLYTES: Strict monitoring of intake and output Daily weights Avoid nephrotoxic agents Monitor electrolytes and replace as needed Goal urine output of 30mL/hr or 0.5mL/kg/hr ENDOCRINE: Maintain blood glucose between 100-180 at all times. Insulin sliding scale for blood glucose management INFECTIOUS DISEASE: Trend temperature. [place]-culture if febrile. Micro: [ ] Respiratory culture Blood cultures UA and urine culture Antibiotics: Rocephin Azithromycin HEMATOLOGY & COAGULATION: Monitor H&H. Keep Hgb > 7 Transfuse 1 unit of PRBC for Hgb < 7 Transfuse 1 pack of platelets of platelets < 20, 000 Watch for any signs and symptoms of bleeding SKIN: Pressure ulcer prevention per facility protocol Rehab: PT/OT Prophylaxis: GI: Protonix DVT: Lovenox Code Status: Full Resuscitation Disposition: ICU Other: Total patient care time exceeds 35 minutes excluding all procedures. Case was discussed and seen with my supervising physician. The above plan was formulated and agreed upon. THI LOPEZ [facility] Jul 02, 2025 09:17
--- NOTE | 2025-07-02 10:33 | PN ---
[facility] PROGRESS NOTE Date of Service: Jul 02, 2025 Time of Service: 10:32 SUBJECTIVE: [ ] PCP: Self Referral admission Date: 07/01/25 CC: asthmatic episodes This is a 25-year-old female was brought in by EMS patient is presented with flare-up of her asthma presenting in ED with asthmatic distress. Dyspneic with no exertion. Onset started this morning. Severity was severe. Aggravated factors activity, alleviating factors none. As per ER physician in route patient's saturations were 80s. Patient has underlying history of asthma. ER workup patient received high dose of Solu-Medrol and bronchodilators. We will bring critical team production leader's on board. Patient denies fever chills nonproductive cough. She reports taking her inhaler but it was not helping her symptoms. 07/02/25 patient remains in ICU transition to medical floor. Patient continues on oxygen supplemental titrating currently 3 L nasal cannula. Critical team following appreciate their input. Encourage patient out of bed to chair as tolerated. REVIEW OF SYSTEMS A14 point ROS was obtained all relevant positives were documented otherwise ROS negative PHYSICAL EXAM GENERAL APPEARANCE: The patient is awake, alert, and oriented, in no acute cardiopulmonary distress. NEUROLOGICAL: Cranial nerves II-XII grossly intact. Motor is 5/5 in bilateral upper and lower extremities proximal to distal. No sensory deficits. HEENT: Face is symmetric. Pupils are equal and reactive. Extraocular movements are intact. NECK: Supple. No JVD. No thyromegaly. No submental, submandibular, pre- /postauricular, occipital or supraclavicular lymphadenopathy. CHEST: Normal chest expansion. No Telemetry. LUNGS: Absence of any rales, rhonchi or any wheezing. CARDIOVASCULAR: Regular. S1 and S2 normal. No appreciable rubs, murmurs or gallops. ABDOMEN: Soft, nontender, and nondistended. There is no rebound, voluntary guarding, or rigidity. : Deferred. No Liu. EXTREMITIES: Non-edematous and not cyanotic. No clubbing. Good capillary refill. SKIN: No skin breakdown. Vital Signs (last 8hr) Date Time Temp Pulse Resp B/P (MAP) Pulse Ox O2 Delivery O2 Flow Rate FiO2 07/02/25 09:36 79 18 07/02/25 08:00 98 Nasal Cannula* 3 32 07/02/25 06:47 58 18 N/Cannula Low lpm 2.0 28 07/02/25 06:44 58 18 07/02/25 06:11 59 12 102/57 99 Nasal Cannula 3.0 07/02/25 05:56 62 17 110/65 96 Nasal Cannula 3.0 07/02/25 05:41 54 18 103/53 97 Nasal Cannula 3.0 07/02/25 05:26 58 17 110/68 98 Nasal Cannula 3.0 07/02/25 05:11 74 9 121/73 96 Nasal Cannula 3.0 07/02/25 04:56 49 20 111/54 96 Nasal Cannula 3.0 07/02/25 04:41 48 17 112/57 98 Nasal Cannula 3.0 07/02/25 04:26 54 19 115/60 97 Nasal Cannula 3.0 07/02/25 04:12 59 19 115/69 96 Nasal Cannula 3.0 07/02/25 04:00 98 Nasal Cannula* 3 32 07/02/25 03:25 98.8 60 12 107/82 99 Nasal Cannula* 3 32 LABS: Laboratory: Test 07/01/25 13:38 07/01/25 13:18 Range/Units Blood Gas Specimen Type Arterial Arterial Blood pH 7.371 7.350-7.450 Arterial Blood Partial Pressure CO2 38 32-45 mmHg Arterial Blood Partial Pressure O2 76.3 L 83.0-108.0 mmHg Arterial Blood HCO3 21.7 21.0-28.0 mmol/L Arterial Blood Oxygen Saturation 95.0 94.0-98.0 % Arterial Blood Base Excess -3.1 L -2.0-3.0 mmol/L Blood Gas Temperature 37.0 35.5-37.0 CELSIUS Blood Gas Flow-by 3.00 0.00-15.00 L/min Blood Gas Vent Mode NC ROOM AIR FiO2 32.0 % Blood Gas Specimen Comment LR,[employer] White Blood Count 10.8 4.8-10.8 K/uL Red Blood Count 4.59 4.00-5.50 MIL/uL Hemoglobin 11.8 L 12.0-16.0 g/dL Hematocrit 36.9 36-48 % Mean Corpuscular Volume 80.4 79-99 fL Mean Corpuscular Hemoglobin 25.7 L 27.0-33.0 pg Mean Corpuscular Hemoglobin Concent 32.0 32.0-36.0 g/dL Red Cell Distribution Width 14.6 11.0-15.5 % Platelet Count 337 130-400 K/uL Mean Platelet Volume 11.1 H 7.5-10.5 fL Immature Granulocyte % (Auto) 0.5 0-1 % Neutrophils (%) (Auto) 83.0 H 40.0-77.0 % Lymphocytes (%) (Auto) 11.2 L 21.0-51.0 % Monocytes (%) (Auto) 2.6 L 3.0-13.0 % Eosinophils (%) (Auto) 2.0 0.0-8.0 % Basophils (%) (Auto) 0.7 0.0-5.0 % Neutrophils # (Auto) 8.9 H 1.8-7.7 K/uL Lymphocytes # (Auto) 1.2 1.0-4.8 K/uL Monocytes # (Auto) 0.3 0.1-1.0 K/uL Eosinophils # (Auto) 0.21 0.00-0.70 K/uL Basophils # (Auto) 0.07 0.00-0.20 K/uL Absolute Immature Granulocyte (auto 0.05 0-1 K/uL Nucleated Red Blood Cells 0.0 0.0-0.19 % Sodium Level 139 136-145 mmol/L Potassium Level 3.6 3.5-5.1 mmol/L Chloride Level 105 101-111 mmol/L Carbon Dioxide Level 25 21-32 mmol/L Blood Urea Nitrogen 10 7-18 mg/dL Creatinine 0.7 0.5-1.0 mg/dL Glomerular Filtration Rate Calc 124 >90 mL/min Random Glucose 105 70-105 mg/dL Lactic Acid Level 1.3 0.8-2.5 mmol/L Total Calcium 8.9 8.5-10.1 mg/dL Serum Test, Qualitative NEGATIVE NEGATIVE Current Medications Medications (Trade) Dose Ordered Sig/Felicia Route PRN Reason Start Time Stop Time Status Last Admin Dose Admin Acetaminophen (TYLenol 325MG TAB) 650 mg Q4H PRN PO TEMPERATURE GREATER THAN 101.5 07/01/25 14:30 07/31/25 14:29 Albuterol (DUOneb) 1 UDVIAL Q6H PRN IH SHORTNESS OF BREATH 07/02/25 10:00 08/01/25 09:59 Albuterol Sulfate (Proventil 0.083% 2.5mg/3ml) 10 mg ONCE STAT IH 07/01/25 13:40 07/01/25 13:42 DC 07/01/25 13:53 10 MG Azithromycin 250 ml @ 250 mls/hr Q24H IVPB 07/01/25 14:30 07/11/25 14:29 07/01/25 15:31 250 MLS/HR Budesonide (Pulmicort 0.5 Mg/2ml) 0.5 mg BIDRESP IH 07/01/25 18:00 07/31/25 17:59 07/02/25 06:43 0.5 MG Budesonide (Pulmicort 0.5 Mg/2ml) 1 mg ONCE STAT IH 07/01/25 11:42 07/01/25 11:48 DC 07/01/25 12:15 1 MG Ceftriaxone Sodium (ROCEphine 1G INJ) 1 gm Q24H IVPB 07/02/25 14:30 07/12/25 14:29 Enoxaparin Sodium (Lovenox) 40 mg DAILY SQ 07/02/25 09:00 08/01/25 08:59 07/02/25 07:58 40 MG Ipratropium [place] (AtrovENT UD) 0.5 MG [id number] 07/01/25 18:00 07/02/25 09:48 DC 07/02/25 09:33 0.5 MG Magnesium Sulfate 50 ml @ 0 mls/hr ONCE IV 07/01/25 14:30 07/01/25 14:34 DC Magnesium Sulfate 50 ml @ 0 mls/hr PROTOCOL IV 07/01/25 14:30 07/31/25 14:29 07/01/25 19:30 25 MLS/HR Methylprednisolone Sodium Succinate (Solu-medROL 40MG) 60 mg Q8H IVP 07/01/25 14:30 07/01/25 14:31 DC Methylprednisolone Sodium Succinate (Solu-medROL 40MG) 80 mg Q6H IVP 07/01/25 14:30 07/31/25 14:29 07/02/25 07:57 80 MG Montelukast Sodium (SinguLAIR) 10 mg HS PO 07/01/25 21:00 9/1/25 20:59 07/01/25 19:31 10 MG Ondansetron HCl (zoFRAN 4MG INJ) 4 mg Q6H PRN IVP NAUSEA/VOMITING 07/01/25 14:30 07/31/25 14:29 Pantoprazole Sodium (PROTonix 40MG INJ) 40 mg DAILY IVP 07/01/25 15:00 07/31/25 14:59 07/02/25 07:57 40 MG DIAGNOSTICS / RADIOLOGY: [ ] ASSESSMENT: Status asthmaticus POA Acute hypoxemic respiratory failure, POA Suspected cap, POA suspecting Sepsis, POA Obesity BMI of 34.3 History of untreated asthma PLAN: Admit: ICU transitioned to medical floor condition: Guarded Status: Full code IVF: [employer] production leader's Antibiotics: Rocephin1 g every24 / azithromycin 500 IV daily Oxygen supplemental to keep O2 sats above 92% IV steroids Solu-Medrol 80 mg IV every six hours. Bronchodilators scheduled every 6 hours Montelukast 10 mg at bedtime Microbiology gram stain respiratory culture Labs cbc, cmp, mag+ Replace electrolytes as needed as per protocol to keep potassium above 4.0 magnesium 2.0. PRN: MEDICATIONS Aspiration precautions Supportive measures: DVT ppx, GI ppx all questions answered time spent: > 35 min Supervising MD: Dr. Ryan Resendiz c/d This document was generated in part using voice recognition software, occasional wrong word or sound alike substitutions may have occurred due to the inherent limitations of voice recognition software. Read the chart carefully and recognize using context, where the substitutions have occurred. Although every effort was made to edit the content, switch operator and typing errors may occur ATTESTATION BY PHYSICIAN I have seen and examined the patient. I reviewed the documentation, medical decision making, and treatment plan as noted by the mid-level provider above. I agree with the findings and plan of care. Edwina Davis MD, ELIZABETH NP Jul 02, 2025 10:33
--- NOTE | 2025-07-02 11:20 | NUR ---
TRANSFER REPORT GIVEN TO SIDDHARTH NICHOLS, PT TRANSFERRED TO ROOM 414 VIA W/C, O2 @2L VIA N/C. NO DISTRESS NOTED AT THIS TIME
[2025-07-02] MEDS ORDERED: PoTASSium chl 10% ELIXIR 20MEQ 20 MEQ/15 ML UDCUP PO PRN (11:30)
--- NOTE | 2025-07-02 11:37 | NUR ---
PT ARRIVED TO UNIT. PT AWAKE & ALERT X 3. PT SITTING ON THE BED ON HER PHONE. NO S/S OF DISTRESS. VS: 97.8, 115/63, 70 BPM, 95% NC ON 2L, 16 RR. CALL LIGHT WITHIN REACH, BED RAILS X2 AND BED LOCKED AND LOW.
[2025-07-02] MEDS: PoTASSium chloRIDE 20MEQ ER 20 MEQ ERTAB PO PRN (12:10)
[2025-07-02] MEDS ORDERED: ALBUTEROL 0.083% 2.5 MG/3 ML INH IH SCH (15:00)
--- NOTE | 2025-07-02 16:28 | NUR ---
D/C PLAN CM spoke to patient regarding d/c planning. Patient reports she is independent with ADLs. Denies having any DME. States she lives with mother and she can assist as needed. Patient is uninsured. CM provided community resources packet. Addendum: 07/02/25 at 1632 by MAI JOVEL CM Amended: Links added.
[2025-07-02] MEDS ORDERED: SUB PER P&T FOR ASTHMA OR COPD RECOMMENDATION IH SCH (21:00)
[2025-07-03] VITALS (12 sets, daily range): BP systolic 97–118; BP diastolic 54–67; PULSE 68–126; RESP 16–23; TEMP 98–98.5; O2SAT 87–96
[2025-07-03 05:13] LABS: IMMATURE GRANULOCYTE ABSOLUTE 0.10 K/uL (0-1); NUCLEATED RED BLOOD CELLS 0.0 % (0.0-0.19); PLATELET COUNT (AUTO) 348 K/uL (130-400); RED BLOOD CELL COUNT(AUTO) 4.20 MIL/uL (4.00-5.50); RED CELL DISTRIBUTION WIDTH 15.3 % (11.0-15.5); WHITE BLOOD COUNT (AUTO) 16.8 K/uL (4.8-10.8)
[2025-07-03 05:28] LABS: ASPARTATE AMINOTRANSFERASE 9.0 U/L (10-37); CREATININE 0.9 mg/dL (0.5-1.0); GLOMERULAR FILTR. RATE CALC 92.0 mL/min (>90); GLUCOSE,RANDOM 128.0 mg/dL (70-105); SODIUM SERUM 139.0 mmol/L (136-145); TOTAL PROTEIN, SERUM 6.7 g/dL (6.0-8.3); UREA NITROGEN, BLOOD 18.0 mg/dL (7-18)
--- NOTE | 2025-07-03 10:38 | PN ---
[facility] PROGRESS NOTE Date Patient Seen: Jul 03, 2025 Time of Visit: 10:33 Supervising Physician: Rahul Good Primary Care Physician: None Outpatient Specialists: [ ] Inpatient Consults: [ ] Attending Physician: [employer] team PROBLEM LIST: Status asthmaticus POA, improved Acute hypoxemic respiratory failure, POA Neutrophilia, POA Suspected cap, POA Sepsis, POA Obesity BMI of 34.3 History of untreated asthma and previous intubation at the age of 14. Plan summary: Supplemental oxygen as needed Patient is currently on room air Continue azithromycin Continue Pulmicort Continue Rocephin Decrease Solu-Medrol to 40 mg b.i.d. Continue montelukast 6 minute walk test prior to discharge INTERVAL HISTORY: Patient is awake alert and oriented x3. She is hemodynamically stable heart rate in the 70s sinus rhythm. Patient reports she has been in better. No further audible wheezing on auscultation. Peak flow 200. she is stable to downgrade to medical floor. We will start Spiriva inhaler. change Atrovent to duo nebs. 07/03 - patient was transferred out of ICU where she was being cared for secondary to acute on chronic asthma exacerbation. Patient is seen sitting up in bed with no signs of acute distress. Patient has been on room air and denies dyspnea. No wheezing noted on exam. Recommend begin tapering Solu-Medrol and transitioned to prednisone. Patient to continue Spiriva. Patient to continue treatment and Pulmicort. Obtain a 6 minute walk test prior to discharge. Patient is advised to follow up in [facility]monary Clinic[facility] week post discharge. REVIEW OF SYSTEMS: Const: no fever, fatigue, or weight changes Eyes: no recent vision problems ENT: No congestion, ear pain, or sore throat C/V: no chest pain, palpitations or edema Resp:reports decreased dyspnea GI: No abdominal pain, nausea, vomiting, constipation, or diarrhea : No incontinence of or dyuria M/S: No joint or pain swelling Skin: No rash Neuro: no headache, focal numbness, or weakness, dizziness or seizures Psych: no depression or anxiety Heme: no abnormal bruising or bleeding Lymph: no swollen glands PHYSICAL EXAM: GENERAL: Awake alert and oriented x3, moderate respiratory distress, speaks in two word phrases. HEENT: EOMI, Sclera non icteric, moist mucosa NECK: Supple, no JVD, trachea midline LUNGS: Audible wheezing in bilateral upper and lower lung gautam, prolonged expiratory phase. Tachypneic HEART: Tachycardic, regular rhythm no murmur. ABD: Abdomen soft, nontender. Bowel sounds present EXT: No clubbing cyanosis or edema NEURO: Awake alert and oriented x3, follows commands, anxious. Vital Signs (last 8hr) Date Time Temp Pulse Resp B/P (MAP) Pulse Ox O2 Delivery O2 Flow Rate FiO2 07/03/25 09:39 92 Room Air* 0 21 07/03/25 09:23 70 18 07/03/25 08:00 98.1 105 16 112/54 92 Room Air 07/03/25 06:39 93 18 07/03/25 06:38 92 18 N/Cannula Low lpm 21 07/03/25 03:45 98.1 96 16 97/54 95 Room Air LABS: Hematology Labs: Test 07/03/25 05:02 Range/Units White Blood Count 16.8 H 4.8-10.8 K/uL Red Blood Count 4.20 4.00-5.50 MIL/uL Hemoglobin 10.9 L 12.0-16.0 g/dL Hematocrit 33.7 L 36-48 % Mean Corpuscular Volume 80.2 79-99 fL Mean Corpuscular Hemoglobin 26.0 L 27.0-33.0 pg Mean Corpuscular Hemoglobin Concent 32.3 32.0-36.0 g/dL Red Cell Distribution Width 15.3 11.0-15.5 % Platelet Count 348 130-400 K/uL Mean Platelet Volume 11.9 H 7.5-10.5 fL Immature Granulocyte % (Auto) 0.6 0-1 % Neutrophils (%) (Auto) 90.5 H 40.0-77.0 % Lymphocytes (%) (Auto) 6.8 L 21.0-51.0 % Monocytes (%) (Auto) 2.0 L 3.0-13.0 % Eosinophils (%) (Auto) 0.0 0.0-8.0 % Basophils (%) (Auto) 0.1 0.0-5.0 % Neutrophils # (Auto) 15.2 H 1.8-7.7 K/uL Lymphocytes # (Auto) 1.1 1.0-4.8 K/uL Monocytes # (Auto) 0.3 0.1-1.0 K/uL Eosinophils # (Auto) 0.00 0.00-0.70 K/uL Basophils # (Auto) 0.02 0.00-0.20 K/uL Absolute Immature Granulocyte (auto 0.10 0-1 K/uL Nucleated Red Blood Cells 0.0 0.0-0.19 % White Cell Morphology Comment See comments Chemistry Labs: Test 07/03/25 05:02 07/01/25 13:18 Range/Units Sodium Level 139 136-145 mmol/L Potassium Level 4.3 3.5-5.1 mmol/L Chloride Level 107 101-111 mmol/L Carbon Dioxide Level 21 21-32 mmol/L Blood Urea Nitrogen 18 7-18 mg/dL Creatinine 0.9 0.5-1.0 mg/dL Glomerular Filtration Rate Calc 92 >90 mL/min Random Glucose 128 H 70-105 mg/dL Total Calcium 8.6 8.5-10.1 mg/dL Total Bilirubin 0.2 0.2-1.0 mg/dL Aspartate Amino Transf (AST/SGOT) 9 L 10-37 U/L Alanine Aminotransferase (ALT/SGPT) 17 12-78 U/L Alkaline Phosphatase 51 50-136 U/L Total Protein 6.7 6.0-8.3 g/dL Albumin 2.8 L 3.5-5.0 g/dL Lactic Acid Level 1.3 0.8-2.5 mmol/L Serum Test, Qualitative NEGATIVE NEGATIVE DIAGNOSTICS / RADIOLOGY RESULTS: [ ] PLAN NEURO: Minimize central acting medications as possible. Maintain fall precautions, adequate lighting during the day PULMONARY: Supplemental 02 as needed. Maintain aspiration precautions at all times CARDIOVASCULAR: Follow hemodynamics. Vital signs per facility protocol GI & NUTRITION: Continue with nutritional support. Continue stool softeners and laxatives as needed. KIDNEYS & ELECTROLYTES: Strict monitoring of intake, output and overall fluid balance. Avoid nephrotoxic medications to the extent possible. Medications to be dosed according to renal function. Monitor electrolytes and replace as needed ENDOCRINE: Maintain blood glucose between 100-180 at all times. Hypoglycemia protocol in place INFECTIOUS DISEASE: Trend temperature, WBC and procalcitonin level Follow cultures, deescalate antibiotics as soon as possible. Panculture if new onset fever ONCOLOGY/HEMATOLOGY/COAGULATION: Monitor for s/s of bleeding Monitor hemoglobin, coagulation studies as needed SKIN: Pressure ulcer prevention per facility protocol Specialty mattress ORTHO/REHAB: Continue PT/OT Prophylaxis: Continue GI and DVT prophylaxis Code Status: Full Resuscitation Disposition: Home as per attending. ATTESTATION BY PHYSICIAN I have seen and examined the patient. I reviewed the documentation, medical decision making, and treatment plan as noted by the mid-level provider above. I agree with the findings and plan of care. Meri Good MD, ECTOR N NP Jul 03, 2025 10:38
--- NOTE | 2025-07-03 12:18 | DS ---
Discharge Summary Hospital Course Summary: PCP: Self Referral admission Date: 07/01/25 CC: asthmatic episodes This is a 25-year-old female was brought in by EMS patient is presented with flare-up of her asthma presenting in ED with asthmatic distress. Dyspneic with no exertion. Onset started this morning. Severity was severe. Aggravated factors activity, alleviating factors none. As per ER physician in route patient's saturations were 80s. Patient has underlying history of asthma. ER workup patient received high dose of Solu-Medrol and bronchodilators. We will bring critical team tape deck installer's on board. Patient denies fever chills nonproductive cough. She reports taking her inhaler but it was not helping her symptoms. 07/02/25 patient remains in ICU transition to medical floor. Patient continues on oxygen supplemental titrating currently 3 L nasal cannula. Critical team following appreciate their input. Encourage patient out of bed to chair as tolerated. 07/03/2024 patient is hemodynamically stable she has been on room air over24 hours . 6 minute walk done did not meet home oxygen criteria. Patient we will follow-up with pulmonary clinic in one-week patient we will be discharged on oral antibiotics in Medrol Dosepak advised patient to complete full cycle of antibiotics and steroids verbalized understanding. All questions and concerns were addressed Superintendent Greens(s): REASON: SOB/WHEEZING ORDERING PHYSICIAN: DAWSON BOND NP PROCEDURE: CXR1VW - CHEST 1VW EXAM: CR Chest, 1 View. CLINICAL HISTORY: SOB/WHEEZING COMPARISON: None provided. FINDINGS: LUNGS: There is no mass, infiltrate, or acute pulmonary abnormality. PLEURAL SPACES: No pleural effusion or pneumothorax. MEDIASTINUM: Cardiac size and mediastinal contours within normal limits. BONES: No aggressive appearing osseous lesion seen. IMPRESSION: No acute cardiopulmonary pathology is evident. Assessment/Plan: Discharged dx's; Status asthmaticus POA resolved Acute hypoxemic respiratory failure, POA resolved Suspected cap, POA suspecting Sepsis, POA Obesity BMI of 34.3 History of untreated asthma PLAN: ADMISSION DATE: 07/01/2025 DISCHARGE DATE: 07/03/2025 DISPOSITION: Home CONDITION: Stable INCUBATOR OPERATOR(S): Pulmonology FOLLOW UP APPOINTMENT(S): [facility] Driver/Labor's one-week PROCEDURES: None IMAGING (S) report attached to summary : CT chest MICROBIOLOGY: report attached to summary; urine culture blood cultures ACTIVITY: [facility] HOME MEDICATIONS albuterol inhaler we will continue CHANGES ON HOME MEDICATIONS none NEW MEDICATIONS Azithromycin 500 Mg Tablet daily x3 days Budesonide (Pulmicort Flexhaler) 90 Mcg Aer.pow.ba once a day Cefdinir 300 Mg Capsule b.i.d. for seven days Methylprednisolone (Medrol) 4 Mg Tablet as directed Montelukast Sodium (Singulair 10Mg) 10 Mg Tab daily TEACHING: Advised patient to complete full cycle of steroids and antibiotics discussed adverse reaction and side effects of new medication Emergency instructions: The patient was instructed to present to the nearest Emergency Department or call 911 should their symptoms return or worsen. Home Medications: Reported Medications Albuterol Sulfate (Albuterol Sulfate) 2.5 Mg/3 Ml (0.083 %) Vial.neb, 1 VIAL NEB Q4HPRN PRN for wheezing 05/21/25 New Medications: Azithromycin (Azithromycin) 500 Mg Tablet 1 TAB PO DAILY for 3 Days, #3 TAB 0 Refills Budesonide (Pulmicort Flexhaler) 90 Mcg Aer.pow.ba 2 PUFF IH BID for 30 Days, #1 EACH 0 Refills Cefdinir (Cefdinir) 300 Mg Capsule 1 CAP PO BID for 7 Days, #14 CAP 0 Refills Methylprednisolone (Medrol) 4 Mg Tablet 1 TAB PO AD for 6 Days, #21 TAB 0 Refills Montelukast Sodium (Singulair 10Mg) 10 Mg Tab 10 MG PO HS for 30 Days, #30 TAB Continued Medications: Albuterol Sulfate (Albuterol Sulfate) 2.5 Mg/3 Ml (0.083 %) Vial.neb 1 VIAL NEB Q4HPRN PRN for wheezing Time spent arranging discharge: 31-60 minutes ATTESTATION BY PHYSICIAN I have seen and examined the patient. I reviewed the documentation, medical decision making, and treatment plan as noted by the mid-level provider above. I agree with the findings and plan of care. Edwina Davis MD, ELIZABETH NP Jul 03, 2025 12:18
--- NOTE | 2025-07-03 16:34 | NUR ---
DC PLAN CM RECEIVED TRIGGER FOR 02. NOW QUALIFIES CM CALLED TO [facility] NO LONGER DO PRIVATE PAY 02. [facility] SAID THEY STILL DO 02 PRIVATE PAY NO RENTAL DO. CONCENTRATOR $900, ETANK W/ REGULATOR $200 REFILL $80. MANUELA SPOKE TO PATIENT EXPLAINED ABOUT 02. SAID DOES NOT HAVE MONEY FOR 02. SAID THAT SHE HAS BEEN HAVING 02 NEEDS OFF AND ON. SAID SHE GETS USED TO NOT USING IT. CM TRIED TO EXPLAIN THAT MD WOULD LIKELY NOT BE DC WITH OUT O2 DUE TO SAFETY. SAID DID NOT HAVE MUCH CHOICE HAS A BABY AT HOME. CM LET NURSE KNOW. SEE IF MD CAN RESTART STEROIDS MAYBE PO AND SEE IF 02 WOULD IMPROVE. Addendum: 07/03/25 at 1642 by JEANCARLOS REYNA RN CM Amended: Links added.
--- NOTE | 2025-07-03 20:27 | NUR ---
PATIENT REQUESTED TO LEAVE AMA DUE TO NO DIGITAL PHOTOGRAPHIC PRINTER AT HOME. PATIENT SIGNED AMA FORM AND LEFT WITH SISTER AT THIS TIME. Addendum: 07/03/25 at 2056 by CAMMY YODER RN RN LATE ENTRY: PATIENT WAS ADVISED OF THE RISKS SHE IS TAKING IN LEAVING AMA. I ADVISED HER OF RETURNING TO THE ER IF SYMPTOMS WORSEN AT HOME. PATIENT VERBALIZED UNDERSTANDING.
--- NOTE | 2025-07-03 20:51 | NUR ---
CALLED HOSPITALIST ANSWERING SERVICE. SPOKE WITH FREDRICK BUCHANAN POLICY ANALYST ABOUT PATIENT LEAVING AMA. DEWAYNE VERBALIZED UNDERSTANDING.
[2025-07-03] MEDS ORDERED: Solu-medROL 40MG VIAL IVP SCH (21:00)
== END 2025-07-03 20:26 | disposition left against medical advice (07) | DRG 871 ==
LOC: EDH 11:39 → EDHIP 11:40 → UNDOADMIN 14:06 → 2CH 07-02 03:59 → 4CH 07-02 11:33
PROVIDERS: ADMIT Hospitalist; ATTEND Hospitalist
DX: A41.9 Sepsis, unspecified organism (principal); J18.9 Pneumonia, unspecified organism; J96.01 Acute respiratory failure with hypoxia; J45.902 Unspecified asthma with status asthmaticus; Z68.34 Body mass index [BMI] 34.0-34.9, adult; E66.9 Obesity, unspecified
CPT/HCPCS: 36415; 36600; 71045; 80048; 80053; 82803; 83605; 84703; 85025; 87040; 94640; 94644; 94664; 94760; 96374; 99285; G0378; J0456; J0696; J1650; J2470; J2919; J3475